=== PATIENT | male | born 1980 | race Caucasian/White ===

== ENCOUNTER 2017-12-14 11:41 | Inpatient (IN) | payer OTHER ==
--- NOTE | 2017-12-14 11:53 | CPEKG ---
Heart Rate: 96 RR Interval: 625 P-R Interval: 152 QRSD Interval: 78 QT Interval: 316 QTC Interval: 400 P Casanova: 43 QRS Casanova: 34 T Wave Casanova: -23 EKG Severity - BORDERLINE ECG - EKG Impression: SINUS RHYTHM EKG Impression: PROBABLE LEFT ATRIAL ABNORMALITY EKG Impression: BORDERLINE T ABNORMALITIES, INFERIOR LEADS Electronically Signed By: Laury Amin 14-Dec-2017 15:43:51
--- NOTE | 2017-12-14 13:08 | EDPHY ---
H & P Time Seen by Provider: 12/14/17 12:38 HPI/ROS: CHIEF COMPLAINT: Hemoptysis, right-sided chest pain HISTORY OF PRESENT ILLNESS: 37-year-old male presents with a 3 week history of hemoptysis and right-sided chest pain. Onset of a productive cough 3 weeks ago. The cough has gradually worsened and he is now coughing up yellowish sputum, with blood. Associated with severe right-sided chest pain. The chest pain increases with movement and with deep inspiration. Chest x-ray performed at the [facility] today revealed a a cavitary lesion in the right lung and a right pleural effusion. Negative PPD 2 weeks ago according to the patient. No fever or shortness of breath. REVIEW OF SYSTEMS: Constitutional: No fever, no chills Eyes: No visual changes ENT: No sore throat Respiratory: no shortness of breath Gastrointestinal: No nausea, no vomiting, no abdominal pain Genitourinary: no dysuria Musculoskeletal: No leg pain or swelling Skin: No rash Neurological: No headache, no weakness Psychiatric: No depression Past Medical/Surgical History: Left ACL repair Social History: Incarcerated Smoking Status: Former smoker Physical Exam: General Appearance: Alert, pleasant Eyes: Pupils equal and round, no conjunctival pallor or injection ENT, Mouth: Mucous membranes moist Neck: Normal inspection Respiratory: Decreased breath sounds at the right base Cardiovascular: Regular rate and rhythm Gastrointestinal: Abdomen is soft and nontender Neurological: A&O, nonfocal exam Skin: Warm and dry, no rash Extremities: Nontender, no pedal edema Psychiatric: Mood and affect normal Constitutional: Initial Vital Signs Temperature (C) 36.3 C 12/14/17 11:43 Heart Rate 103 H 12/14/17 11:43 Respiratory Rate 20 12/14/17 11:43 Blood Pressure 125/82 H 12/14/17 11:43 O2 Sat (%) 93 12/14/17 11:43 O2 Delivery Mode Room Air Allergies/Adverse Reactions: No Known Allergies Allergy (Unverified 12/14/17 11:43) Home Medications: Medication Instructions Recorded Amitriptyline HCl [Elavil] 25 mg PO DAILY 12/14/17 Ibuprofen [Motrin (*)] 800 mg PO BID PRN 12/14/17 Medical Decision Making - Diagnostics EKG Interpretation: EKG interpreted by me reveals sinus rhythm, rate 96, nonspecific T-wave changes in the inferolateral leads. Imaging Results: Imaging Impressions Chest CT 12/14/17 13:04 Impression: 1. Large loculated right hydropneumothorax suggesting empyema, with a small probable abscess at the lateral aspect of the right upper lobe discrete from the complex pleural fluid. 2. Slight leftward mediastinal shift. 3. Tiny pericardial effusion. 4. Prominent likely reactive right hilar lymph node. 5. Trace left effusion. 6. Additional findings as above. Findings discussed with Laury Amin on 12/14/2017 at 1412 hours. ED Course/Re-evaluation: This ipt presents with a 3 wk h/o right sided chest pain and hemoptysis. Outpt CXR concerning for abscess. Pt placed in respiratory isolation after CXR reviewed by me. Pt is surprisingly nontoxic appearing and VS unremarkable, except for initial HR 103. IV NS 1 liter given. Meets SIRS criteria, with elevated HR and leukocytosis; lactate is normal, does not meet severe sepsis protocol. 1415--CT scan result discussed with Dr. Jimenes and reveals a right upper lobe abscess and a moderate right-sided pleural effusion, likely empyema. Patient is nontoxic-appearing. Dr. Lilly Ann was consulted for chest tube placement. Dr. Hwang was consulted for admission. Dr. Chamberlain consulted, suggests Invanz 1gm IV and will see pt in ED. Invanz IV ordered after blood cultures. Pt remained stable throughout his ED stay. Differential Diagnosis: Differential diagnosis includes though it is not limited to pneumonia, pneumothorax, pulmonary embolism, aortic dissection, pericarditis, acute coronary syndrome. - Data Points Laboratory Results: Laboratory Results 12/14/17 13:00 12/14/17 13:00 12/14/17 12/14/17 12/14/17 13:00 13:00 13:00 WBC RBC Hgb Hct MCV MCH MCHC RDW Plt Count MPV Neut % (Auto) Lymph % (Auto) [place] % (Auto) Eos % (Auto) Baso % (Auto) Nucleat RBC Rel Count Absolute Neuts (auto) Absolute Lymphs (auto) Absolute Monos (auto) Absolute Eos (auto) Absolute Basos (auto) Absolute Nucleated RBC Immature Gran % Seg Neutrophils % Band Neutrophils % Lymphocytes % Monocytes % Immature Gran # Absolute Seg Neuts Absolute Band Neuts Absolute Lymphocytes Absolute Monocytes RBC/WBC/PLT Morphology Platelet Estimate Smear Review By D-Dimer 1.05 ug/mLFEU H ug/mLFEU (0.00-0.50) Sodium 135 mEq/L mEq/L 135 mEq/L mEq/L (135-145) (135-145) Potassium 4.2 mEq/L mEq/L 4.2 mEq/L mEq/L (3.5-5.2) (3.5-5.2) Chloride 99 mEq/L mEq/L 99 mEq/L mEq/L (97-110) (97-110) Carbon Dioxide 26 mEq/l mEq/l 26 mEq/l mEq/l (22-31) (22-31) Anion Gap 10 mEq/L mEq/L 10 mEq/L mEq/L (8-16) (8-16) BUN 12 mg/dL mg/dL 12 mg/dL mg/dL (7-23) (7-23) Creatinine 0.7 mg/dL mg/dL 0.7 mg/dL mg/dL (0.7-1.3) (0.7-1.3) Estimated GFR > 60 > 60 Glucose 119 mg/dL H mg/dL 119 mg/dL H mg/dL (70-100) (70-100) Calcium 8.4 mg/dL L mg/dL 8.4 mg/dL L mg/dL (8.5-10.4) (8.5-10.4) Total Bilirubin 0.3 mg/dL mg/dL (0.1-1.4) AST 15 IU/L L IU/L (17-59) ALT 31 IU/L IU/L (21-72) Alkaline Phosphatase 77 IU/L IU/L (38-126) Total Protein 5.3 g/dL L g/dL (6.3-8.2) Albumin 2.7 g/dL L g/dL (3.5-5.0) 12/14/17 13:00 WBC 34.40 10^3/uL H 10^3/uL (3.80-9.50) RBC 4.61 10^6/uL 10^6/uL (4.40-6.38) Hgb 13.7 g/dL g/dL (13.7-17.5) Hct 39.5 % L % (40.0-51.0) MCV 85.7 fL fL (81.5-99.8) MCH 29.7 pg pg (27.9-34.1) MCHC 34.7 g/dL g/dL (32.4-36.7) RDW 12.2 % % (11.5-15.2) Plt Count 349 10^3/uL 10^3/uL (150-400) MPV 9.1 fL fL (8.7-11.7) Neut % (Auto) Not Reported Lymph % (Auto) Not Reported [place] % (Auto) Not Reported Eos % (Auto) Not Reported Baso % (Auto) Not Reported Nucleat RBC Rel Count 0.0 % % (0.0-0.2) Absolute Neuts (auto) Not Reported Absolute Lymphs (auto) Not Reported Absolute Monos (auto) Not Reported Absolute Eos (auto) Not Reported Absolute Basos (auto) Not Reported Absolute Nucleated RBC 0.00 10^3/uL 10^3/uL (0-0.01) Immature Gran % Not Reported Seg Neutrophils % 88 % % Band Neutrophils % 5 % % Lymphocytes % 1 % % Monocytes % 6 % % Immature Gran # Not Reported Absolute Seg Neuts 30.27 10^/uL H 10^/uL (1.70-6.50) Absolute Band Neuts 1.72 10^3/uL H 10^3/uL (0.00-0.70) Absolute Lymphocytes 0.34 10^3/uL L 10^3/uL (1.00-3.00) Absolute Monocytes 2.06 10^3/uL H 10^3/uL (0.30-0.80) RBC/WBC/PLT Morphology NORMAL (NORMAL) Platelet Estimate ADEQUATE (ADEQ) Smear Review By Sha MCFARLANE MD D-Dimer Sodium Potassium Chloride Carbon Dioxide Anion Gap BUN Creatinine Estimated GFR Glucose Calcium Total Bilirubin AST ALT Alkaline Phosphatase Total Protein Albumin Medications Given: Discontinued Medications Bupivacaine HCl/Epinephrine Bitart (Bupivacaine/Epi) Confirm Administered Dose 30 ml .ROUTE .STK-MED ONE Stop: 12/14/17 18:24 Last Admin: 12/14/17 20:39 Dose: 30 ml Ertapenem (Invanz) 1 gm IVP EDNOW ONE PRN Reason: Protocol Stop: 12/14/17 14:28 Last Admin: 12/14/17 14:41 Dose: 1 gm Sodium Chloride (Ns) 1,000 mls @ 0 mls/hr IV ONCE ONE; Wide Open PRN Reason: Protocol Stop: 12/14/17 14:32 Last Admin: 12/14/17 14:41 Dose: 1,000 mls Ketorolac Tromethamine (Toradol) 30 mg IVP EDNOW ONE Stop: 12/14/17 14:37 Last Admin: 12/14/17 14:50 Dose: 30 mg Midazolam HCl (Versed) 2 mg IVP ONCALL ONE Stop: 12/14/17 18:28 Last Admin: 12/14/17 19:47 Dose: 2 mg Departure - Departure Disposition: [facility] In[facility] Acute Clinical Impression: Empyema Condition: Serious
[2017-12-14 13:12] LABS: PLATELET COUNT 349 10^3/uL (150-400)
[2017-12-14] MEDS ORDERED: IOPAMIDOL (ISOVUE-300) 100 ML BTL ONE (13:35)
[2017-12-14] MEDS ORDERED: ERTAPENEM 1 GM VIAL IVP ONE (14:27)
[2017-12-14] MEDS ORDERED: NS 1,000 ML IV ONE (14:31)
[2017-12-14] MEDS ORDERED: KETOROLAC 15 MG/1 ML SDV IVP ONE (14:36)
[2017-12-14] MEDS ORDERED: ONDANSETRON 4 MG/2 ML VIAL IVP PRN ×2 (15:30→20:26)
[2017-12-14] MEDS ORDERED: NS 1,000 ML IV SCH (15:30)
[2017-12-14] MEDS ORDERED: ZOLPIDEM TARTRATE 5 MG TAB PO PRN (15:30)
[2017-12-14] MEDS ORDERED: ONDANSETRON DISINTEGRATING 4 MG TAB PO PRN ×2 (15:30→21:20)
--- NOTE | 2017-12-14 15:37 | PDGENHP ---
History and Physical History and Physical: CC: Right-sided chest pain hemoptysis HISTORY: This patient is in assisted for approximately the last 3 weeks and is sent here from assisted today because of worsening right-sided chest pain and hemoptysis. He says he started having a cough and some mild discomfort approximately 2 days before entering assisted so about 3 and half weeks ago. Since then his cough has progressively gotten more persistent, producing initially some dark phlegm a week or 2 ago and now some hemoptysis. He also has gradually increasing right-sided chest pain which has become fairly severe by this point. He has not felt febrile and apparently has not had any fevers at the assisted but have been noted. Evaluation at the assisted did include a PPD which the patient reports was placed on December 07 and read as negative on December 09. He had a chest x-ray apparently done earlier today that raised concern for a lung abscess. The patient does not recall any episodes of nausea vomiting, anything that felt like aspiration, any episodes where he was unconscious other than normal sleep. He has no previous history of lung infections pneumonias or other serious infectious illnesses. He does not use any IV drugs never has and does not have any other HIV risk factors. He is a smoker since age 13 of a pack a day. There is no history of asthma or other respiratory breathing diseases. He did not have a flu vaccine and has never had a pneumonia vaccine. He has not traveled outside the [place] for many years and never to any areas of the world with significant respiratory infectious is illnesses of concern. He is not aware of anyone he has ever been in contact with his had tuberculosis. He has no significant contact with any animals outside of the occasional helpful PET. ROS: He does think he has lost some weight recently. A comprehensive 10 system review revealed no other significant findings PAST MEDICAL HISTORY: Left knee ACL and PCL repair Some substance abuse in the way of marijuana alcohol and occasional cocaine smoked FAMILY MEDICAL HISTORY: No significant medical illnesses he is aware of SOCIAL HISTORY: Currently could in custody of [facility], and has been in the assisted for around 3 weeks. Does drink some alcohol but it is fairly intermittent, and has occasional use of small amount of smoked cocaine, no history of any IV drug use Some marijuana use daily at home Works as a structural lead painter MEDICATIONS: The patients list has been reconciled by our clinical pharmacist in the EMR. I have reviewed the list and ordered appropriate medicines. PHYSICAL EXAMINATION: Vital Signs: All stable without fever Seed Analyst: Sinus rhythm Examination: General: alert, oriented, good mentation, looks moderately uncomfortable He is quite thin but not really cachectic Skin: warm, dry, good color, no rash HEENT: normal Neck: no mass or jvd Resps: relaxed but slightly rapid at this moment Lungs: Diminished sounds with some egophony at the right lung base, no wheeze or rhonchi Heart: regular, no murmur Abdomen: soft, nondistended, nontender, +BS, no mass Upper Extremities: normal Lower Extremities: no edema, warm No Bleeding or bruising Neurologic: normal speech/language, normal pattern chain builder, no focal weakness IV site: looks normal LABORATORY DATA: White blood cell count notably elevated greater than 30,000 Predominance of neutrophils Rest of CBC unremarkable Metabolic panel unremarkable RADIOLOGY STUDIES: Chest X ray was done at the assisted today and reportedly shows a right lung abscess , this film is not available for us to review here CT chest done in the ER today I did review the images. He has a significant right lower lobe pneumonia, significant loculated pleural effusions with air, right lower lobe lung abscess, and a collection of air at the right hemithorax apex not directly connected to the other processes but probably related to his infectious process. I am unable to see any particular masses but this would be very difficult given this set of images. 12 LEAD EKG: I reviewed a 12 lead EKG tracing from the ER, this shows sinus rhythm with some nonspecific T-wave abnormalities otherwise normal ASSESSMENT: # RIGHT LUNG ABSCESS # RIGHT LOWER LOBE PNEUMONIA # EMPYEMA IS SUSPECTED ON THE RIGHT WITH MULTIPLE LOCULATED PLEURAL EFFUSION CAVITIES WITH SIGNIFICANT AIR # MARKET PLEURITIC CHEST PAIN DUE THE ABOVE # ONGOING CHRONIC TOBACCO ABUSE # NO LUNG MASS SEEN BUT UNABLE TO DEFINITIVELY RULE OUT BASED ON CURRENT IMAGES # CURRENTLY UNDER CUSTODY OF [facility] # INTERMITTENT ALCOHOL AND COCAINE ABUSE, DAILY MARIJUANA USE PLANS: -the patient has been placed in negative pressure room on airborne precautions until we can assess for possible AFB -blood cultures have been obtained, sputum cultures and AFB smears are ordered -the patient has been started on Invanz in the emergency room -will need chest tube placement, but question whether he may also need a procedure to directly drain lung abscess, may need some surgery as part of his treatment for the current infection but will review this with Infectious Disease and General surgery -DVT prophylaxis is ordered -inpatient admission to the hospital as he will be here most likely for at least 5 days, more than that is typical for this kind of case -pain management at this point with Toradol and Tylenol I have reviewed the patient's case in detail with Dr. Laury Amin I have reviewed the patient's past medical records as part of this assessment, including laboratory data from the assisted
--- NOTE | 2017-12-14 15:57 | PDGENHP ---
History and Physical History and Physical: CC: Right-sided chest pain hemoptysis HISTORY: This patient is in sn[facility] for approximately the last 3 weeks and is sent here from [facility] today because of worsening right-sided chest pain and hemoptysis. He says he started having a cough and some mild discomfort approximately 2 days before entering snf so about 3 and half weeks ago. Since then his cough has progressively gotten more persistent, producing initially some dark phlegm a week or 2 ago and now some hemoptysis. He also has gradually increasing right-sided chest pain which has become fairly severe by this point. He has not felt febrile and apparently has not had any fevers at the snf but have been noted. Evaluation at the snf did include a PPD which the patient reports was placed on December 07 and read as negative on December 09. He had a chest x-ray apparently done earlier today that raised concern for a lung abscess. The patient does not recall any episodes of nausea vomiting, anything that felt like aspiration, any episodes where he was unconscious other than normal sleep. He has no previous history of lung infections pneumonias or other serious infectious illnesses. He does not use any IV drugs never has and does not have any other HIV risk factors. He is a smoker since age 13 of a pack a day. There is no history of asthma or other respiratory breathing diseases. He did not have a flu vaccine and has never had a pneumonia vaccine. He has not traveled outside the [place] for many years and never to any areas of the world with significant respiratory infectious is illnesses of concern. He is not aware of anyone he has ever been in contact with his had tuberculosis. He has no significant contact with any animals outside of the occasional helpful PET. ROS: He does think he has lost some weight recently. A comprehensive 10 system review revealed no other significant findings PAST MEDICAL HISTORY: Left knee ACL and PCL repair Some substance abuse in the way of marijuana alcohol and occasional cocaine smoked FAMILY MEDICAL HISTORY: No significant medical illnesses he is aware of SOCIAL HISTORY: Currently could in custody of [facility], and has been in the snf for around 3 weeks. Does drink some alcohol but it is fairly intermittent, and has occasional use of small amount of smoked cocaine, no history of any IV drug use Some marijuana use daily at home Works as a structural bumper and painter MEDICATIONS: The patients list has been reconciled by our clinical pharmacist in the EMR. I have reviewed the list and ordered appropriate medicines. PHYSICAL EXAMINATION: Vital Signs: All stable without fever Small Arms Artillery Repairer: Sinus rhythm Examination: General: alert, oriented, good mentation, looks moderately uncomfortable He is quite thin but not really cachectic Skin: warm, dry, good color, no rash HEENT: normal Neck: no mass or jvd Resps: relaxed but slightly rapid at this moment Lungs: Diminished sounds with some egophony at the right lung base, no wheeze or rhonchi Heart: regular, no murmur Abdomen: soft, nondistended, nontender, +BS, no mass Upper Extremities: normal Lower Extremities: no edema, warm No Bleeding or bruising Neurologic: normal speech/language, normal director of services, no focal weakness IV site: looks normal LABORATORY DATA: White blood cell count notably elevated greater than 30,000 Predominance of neutrophils Rest of CBC unremarkable Metabolic panel unremarkable RADIOLOGY STUDIES: Chest X ray was done at the sn[facility] today and reportedly shows a right lung abscess , this film is not available for us to review here CT chest done in the ER today I did review the images. He has a significant right lower lobe pneumonia, significant loculated pleural effusions with air, right lower lobe lung abscess, and a collection of air at the right hemithorax apex not directly connected to the other processes but probably related to his infectious process. I am unable to see any particular masses but this would be very difficult given this set of images. 12 LEAD EKG: I reviewed a 12 lead EKG tracing from the ER, this shows sinus rhythm with some nonspecific T-wave abnormalities otherwise normal ASSESSMENT: # RIGHT LUNG ABSCESS, LUNG CAVITIES, COUGH AND WEIGHT LOSS (SUSPICION FOR Tb WELL OTHER ORGANISMS) # RIGHT LOWER LOBE PNEUMONIA # EMPYEMA IS SUSPECTED ON THE RIGHT WITH MULTIPLE LOCULATED PLEURAL EFFUSION CAVITIES WITH SIGNIFICANT AIR # MARKET PLEURITIC CHEST PAIN DUE THE ABOVE # ONGOING CHRONIC TOBACCO ABUSE # NO LUNG MASS SEEN BUT UNABLE TO DEFINITIVELY RULE OUT BASED ON CURRENT IMAGES # CURRENTLY UNDER CUSTODY OF [facility] # INTERMITTENT ALCOHOL AND COCAINE ABUSE, DAILY MARIJUANA USE PLANS: -the patient has been placed in negative pressure room on airborne precautions until we can assess for possible AFB -blood cultures have been obtained, sputum cultures and AFB smears are ordered -the patient has been started on Invanz in the emergency room -will need chest tube placement, but question whether he may also need a procedure to directly drain lung abscess, may need some surgery as part of his treatment for the current infection but will review this with Infectious Disease and General surgery -DVT prophylaxis is ordered -inpatient admission to the hospital as he will be here most likely for at least 5 days, more than that is typical for this kind of case -pain management at this point with Toradol and Tylenol I have reviewed the patient's case in detail with Dr. Laury Amin I have reviewed the patient's past medical records as part of this assessment, including laboratory data from the snf
--- NOTE | 2017-12-14 17:49 | GCON ---
[f rep st] CONSULTATION INFECTIOUS DISEASE CONSULTATION DATE OF CONSULTATION: 12/14/2017 REFERRING PHYSICIAN: Laury Amin MD REASON FOR CONSULTATION: Right-sided empyema. HISTORY OF PRESENT ILLNESS: Patient is a 37-year-old male who is currently in senior living who I am asked to see in consultation for right-sided empyema. Patient describes first developing respiratory symptom s in early November. He does note that he had a binge drinking episode prior to onset of symptoms bu t does not recall any loss of consciousness. Initial symptoms included dry cough, right-sided pleuri tic chest pain, and mild fatigue. Over the ensuing time frame, he has developed a productive cough w hich he describes as normally being associated with dark colored sputum, which has now evolved to moraima e element of hemoptysis. He describes this as being approximately 50% of the sputum being occupied b y bloody material. He continues to have significant right-sided pleuritic chest pain. He does not d escribe having fever but does describe having chills and night sweats which have been soaking in natu re. He did undergo PPD placement at the senior living, which was read as negative. He does not have any prio r positive PPD skin testing. Chest x-ray done earlier today raise concerns of lung abscess, and he w as therefore sent to [facility] for further evaluation. Patient notes that he has spent approximately 4 of the last 10 years in senior living. He has not had any recent travel. No animal exposures. No prior history of pneumonia. Patient has not had any recent dental work or dental problems. Evaluation at [facility] rev ealed a white blood cell count of 34,000 with left shift. Venous lactate was normal. Further evalua tion with CT scan of the chest reveals a complex loculated hydropneumothorax consistent with empyema and potentially small adjacent lung abscess in the right upper lobe. There is slight leftward medias tinal shift. Patient does complain of increasing dyspnea over the last week with smaller sized breat hs. Patient denies any prior history of injection drug use or HIV risk factors. He [place] before which has been negative. Blood cultures have been obtained. Given the above findin gs, I am now asked to assist in his ongoing management. PAST MEDICAL HISTORY: Alcohol abuse. PAST SURGICAL HISTORY: Left knee ACL repair. MEDICATIONS: Prior to admission, patient was started on Elavil today. ALLERGIES: No known drug allergies. SOCIAL HISTORY: Patient smokes 1 pack per day. Patient has a history of alcohol abuse with multiple DUIs. He notes occasional cocaine use but no history of injection drug use. Patient does use marij uana. FAMILY HISTORY: Unremarkable. REVIEW OF SYSTEMS: Outside that noted in the HPI, the remainder of 10 system review is unremarkable. PHYSICAL EXAMINATION: VITAL SIGNS: Temperature 36.3, heart rate 95, respiratory rate 18, blood pres sure 136/74, oxygen saturation 93% on room air. GENERAL: Patient is a thin male who appears nontoxi c. HEENT: There is no scleral icterus, conjunctival injection, or conjunctival petechiae. Orophary nx shows dentition in fair repair with dry mucous membranes. There is no sinus tenderness. There is no nasal discharge. NECK: Supple without palpable lymphadenopathy or thyromegaly. CHEST: There a re decreased breath sounds throughout the entire posterior right lung field. The respiratory effort is increased. CARDIOVASCULAR: Regular rate and rhythm without murmurs, gallops, or rubs. ABDOMEN: Soft, nontender, nondistended. There is no palpable organomegaly. Bowel sounds are present. MUSCU LOSKELETAL: No cyanosis, clubbing, or edema. SKIN: Warm and dry to touch. There are no stigmata o f endocarditis. Tattoos are present. NEUROLOGIC: Patient is alert and interacts appropriately with examiner. Cranial nerves 2-12 are grossly intact. Sensation is grossly intact. Muscle tone and bu lk are normal. LYMPHATICS: No cervical or supraclavicular nodes. LABORATORY DATA: White blood cell count 34.4, hematocrit 39.5, platelets 349, neutrophils 88%. Seru m creatinine 0.7, AST 15, ALT 31, bilirubin 0.3, alkaline phosphatase 77. Venous lactic acid is 1.6. INR is 1.0. Blood cultures x2 are pending. CT of chest as outlined above which was reviewed and interpreted by me with Radiology today. IMPRESSION: Right-sided empyema with possible adjacent lung abscess: Most likely, this will be due to oropharyngeal alex given history of alcohol use. I think this is less likely to be associated wi th tuberculosis although tuberculosis can at times be associated with empyema formation. Given exten t and complexity of loculated pleural fluid, this will require further drainage likely via video-assi sted thoracoscopic surgical. Surgical consultation has been requested from the emergency department. RECOMMENDATIONS: 1. Ertapenem 1 g IV q.24 hours. 2. Follow up blood cultures as available. 3. Continue airborne isolation pending further assessment of pleural fluid; pleural fluid cultures w ill be obtained for bacteria, AFB, and fungi. If AFB from pleural fluid is negative, then can discon tinue airborne isolation. 4. Check HIV antibody. Thank you for this consultation. We will continue to follow the patient with you. /[id number]/MODL
--- NOTE | 2017-12-14 18:01 | SOAPPROG ---
SOAP Progress Note Assessment/Plan: Assessment: 37-YEAR-OLD MALE WITH LARGE COMPLEX RIGHT EMPYEMA WITH NO HISTORY OF TRAUMA ADMIT FOR VATS DRAINAGE/RISKS AND OPTIONS FULLY DISCUSSED HEENT NONICTERIC CHEST DULLNESS DECREASED BREATH SOUNDS ON THE RIGHT COR REGULAR RHYTHM ABDOMEN SOFT Plan: VATS DRAINAGE RIGHT CHEST TONIGHT 12/14/17 17:59 Objective: Vital Signs Temp Pulse Resp BP Pulse Ox 37.8 C 90 24 H 136/74 H 98 12/14/17 17:30 12/14/17 17:30 12/14/17 17:30 12/14/17 17:30 12/14/17 17:30 12/13/17 12/14/17 12/15/17 05:59 05:59 05:59 Intake Total 1000 Balance 1000 ICD10 Worksheet Patient Problems: Problems Problem Status Onset Empyema lung Acute - ICD10 Problem Qualifiers (1) Empyema lung
[2017-12-14] MEDS ORDERED: BUPIVACAINE/EPI 0.5% 30 ML SDV ONE (18:23)
--- NOTE | 2017-12-14 18:23 | PDANEPAE ---
ANE History of Present Illness right VATS for empyema ANE Past Medical History - Cardiovascular History Hx Hypertension: No Hx Arrhythmias: No Hx Chest Pain: No Hx Coronary Artery / Peripheral Vascular Disease: No Hx CHF / Valvular Disease: No Hx Palpitations: No - Pulmonary History Hx COPD: No Hx Asthma/Reactive Airway Disease: No Hx Recent Upper Respiratory Infection: No Hx Oxygen in Use at Home: No Hx Sleep Apnea: No - Endocrine History Hx Diabetes: No Hypothyroid: No Hyperthyroid: No Obesity: no - Renal History Hx Renal Disorders: No ANE Review of Systems Review of systems is: negative Review of Systems: - Exercise capacity Exercise capacity: >=4 METS ANE Patient History - Allergies Allergies/Adverse Reactions: No Known Allergies Allergy (Unverified 12/14/17 11:43) - Home Medications Home medications: home medication list seen and reviewed Home Medications: Amitriptyline HCl [Elavil] 25 mg PO DAILY 12/14/17 [Last Taken 12/14/17] Ibuprofen [Motrin (*)] 800 mg PO BID PRN 12/14/17 [Last Taken 12/14/17] - NPO status NPO Since - Liquids (Date): 12/14/17 NPO Since - Liquids (Time): 11:00 NPO Since - Solids (Date): 12/14/17 NPO Since - Solids (Time): 10:30 - Anes Hx Anes Hx: no prior problems - Smoking Hx Smoking Status: Former smoker ANE Labs/Vital Signs - Labs Result Diagrams: 12/14/17 13:00 12/14/17 13:00 - Vital Signs Blood Pressure: 127/75 Heart Rate: 98 Respiratory Rate: 18 O2 Sat (%): 95 Height: 190.5 cm Weight: 71.2 kg ANE Physical Exam - Airway Neck exam: FROM Mallampati Score: Class 1 Mouth exam: normal dental/mouth exam - Pulmonary Pulmonary: no respiratory distress - Cardiovascular Cardiovascular: regular rate and rhythym - ASA Status ASA Status: II, E ANE Anesthesia Plan Anesthesia Plan: general endotracheal anesthesia Specialized Airway: double lumen tube, video laryngoscope, fiberoptic intubation
[2017-12-14] MEDS ORDERED: MIDAZOLAM 2 MG/2 ML VIAL IVP ONE (18:27)
[2017-12-14] MEDS ORDERED: fentaNYL 250 MCG/5 ML INJ ONE (18:32)
[2017-12-14] MEDS ORDERED: PROPOFOL 200 MG/20 ML VIAL ONE (18:32)
[2017-12-14] MEDS ORDERED: ONDANSETRON 4 MG/2 ML VIAL ONE (18:33)
[2017-12-14] MEDS ORDERED: ROCURONIUM 100 MG/10 ML VIAL ONE (18:33)
[2017-12-14] MEDS ORDERED: SUGAMMADEX SODIUM 200 MG/2 ML VIAL IVP ONE (18:33)
[2017-12-14] MEDS ORDERED: DEXAMETHASONE 4 MG/ML VIAL ONE (18:33)
[2017-12-14] MEDS ORDERED: LR 1,000 ML IV SCH (19:00)
--- NOTE | 2017-12-14 20:24 | POSTANESTH ---
Post Anesthetic Evaluation Cardiovascular Status: Normal, Stable Respiratory Status: Normal, Stable Level of Consciousness/Mental Status: Can Participate in Eval Pain Control: Adequate, Prn Tx Ordered Nausea/Vomiting Control: Adequate, Prn Tx Ordered Complications Possibly Related to Anesthesia: None Noted
[2017-12-14] MEDS ORDERED: HYDROmorphONE/DILAUDID 1 MG/ML INJ IVP PRN (20:26)
[2017-12-14] MEDS ORDERED: PROMETHAZINE HCL 25 MG/ML INJ IVP PRN (20:26)
[2017-12-14] MEDS ORDERED: fentaNYL 100 MCG/2 ML INJ IVP PRN (20:26)
[2017-12-14] MEDS ORDERED: LABETALOL HCL 5 MG/ML 20 ML MDV IVP PRN (20:26)
[2017-12-14] MEDS ORDERED: LR 500 ML IV PRN (20:26)
[2017-12-14] MEDS ORDERED: OXYCODONE/APAP 5/325 TAB PO PRN (20:26)
[2017-12-14] MEDS ORDERED: ACETAMINOPHEN 500 MG TAB PO PRN (20:26)
[2017-12-14] MEDS ORDERED: NALOXONE HCL 0.4 MG/ML INJ IVP PRN (20:26)
[2017-12-14] MEDS ORDERED: ALBUTEROL 3 ML DEYVIAL IH PRN (20:26)
[2017-12-14] MEDS ORDERED: HYDROmorphONE/DILAUDID 2 MG/ML INJ ONE (20:44)
--- NOTE | 2017-12-14 21:18 | POSTOPPROG ---
Post Op Note Date of Operation: 12/14/17 Surgeon: Codey Ann Anesthesiologist: ISAK Anesthesia: GET(General Endotracheal) Pre-op Diagnosis: RT EMPYEMA Post-op Diagnosis: SAME Indication: PAIN Procedure: VATS RT EMPYEMA DRAINAGE AND LUNG DECORTICATION Findings: EXTENSIVE FIBRINOUS EXUDATE AND FLUID WITHRLL INFECTION Inf/Abcess present in the surg proc area at time of surgery?: Yes Depth: Organ Space EBL: 50-100 Complications: 0 Drains: Constavac Specimen(s): PLEURAL EXUDATE AND FLUID FOR PATH AND CULTURE
[2017-12-14] MEDS: KETOROLAC 15 MG/1 ML SDV IVP SCH (23:20)
[2017-12-15] MEDS: D5W 1/2 NS W/ 20 KCl/L 1,000 ML IV SCH ×2 (00:14→13:36)
[2017-12-15] MEDS: KETOROLAC 15 MG/1 ML SDV IVP SCH ×4 (00:14→17:39)
[2017-12-15] MEDS: OXYCODONE/APAP 5/325 TAB PO PRN ×5 (02:15→17:37)
[2017-12-15 05:43] LABS: PLATELET COUNT 317 10^3/uL (150-400)
[2017-12-15 07:02] LABS: HIV TYPE 1 AND 2 NEGATIVE (NEGATIVE)
--- NOTE | 2017-12-15 07:21 | PDMN ---
Medical Necessity Medical necessity: [id number] thoracotomy with biopsy or misc. procedures by VATS: A-2 days VATS: R empyema drainage and lung decortication
[2017-12-15] MEDS ORDERED: ENOXAPARIN 40 MG/0.4 ML SYR SC SCH (09:00)
[2017-12-15] MEDS ORDERED: ERTAPENEM 1 GM VIAL IV SCH (09:00)
--- NOTE | 2017-12-15 09:04 | PCMIDPN ---
Assessment/Plan: # R sided empyema: gram stain polymicrobial c/w like oral source/aspiration in setting of heavy drinking (last 1 mo ago). S/p VATS and decortication yesterday with extensive fibrinous exudate identified consistent with infection. Marked leukocytosis not unexpected in the setting of empyema. --dc further AFBs and resp isolation, TB unlikely based on current data as above. --certainly some risk for MDROs/ESBL with incarceration, but incarceration relatively short term. Will dc ertapenem and start Unasyn. Could also consider ceftriaxone + flagyl. --HIV negative (but did not discuss w patient because not back at time of visit) --will monitor WBC over time meds ertapenem 1gm IV daily , #2 micro 3/ lung/pleural tissue: 4+ GPC, 3+ GNR, 2+ GPR, 2+ GNCB, Cx pending Subjective: R chest pain improved after VATs! No c/o - no rash, no diarrhea Feeling very hungry (prior had anorexia!) has not seen dentist in many years Objective: Vital Signs Temp Pulse Resp BP Pulse Ox 36.5 C 66 18 101/67 97 12/15/17 07:32 12/15/17 07:32 12/15/17 07:32 12/15/17 07:32 12/15/17 07:32 Microbiology 12/14/17 20:25 Gram Stain - Final Lung - Eswab 12/14/17 23:30 - Final Sputum, Expectorated 12/14/17 20:15 Gram Stain - Final Lung - Tissue 12/14/17 20:25 Mycobacterial Smear (ZOE) - Final Lung - Eswab Mycobacterial Culture - Final 12/14/17 17:12 Respiratory Panel (PCR) - Final Nasal, Sinus - Swab No Organism Detected Laboratory Results 12/15/17 05:01 12/14/17 12/15/17 12/16/17 05:59 05:59 05:59 Intake Total 4000 Output Total 950 Balance 3050 - Physical Exam General Appearance: thin, non-toxic EENT: other (dentition okay), No thrush Respiratory: crackles (R mid lung with decreased bs base; CT R side with serosang fluid ), No accessory muscle use Cardiac/Chest: regular rate, rhythm Extremities: No pedal edema Abdomen: non-tender, soft Skin: No rash Neuro/Psych: alert, normal mood/affect, oriented x 3 - Time Spent With Patient Time Spent with Patient: greater than 35 minutes (reviewed source of infection with patient and nursing staff) Time Spent with Patient: Greater than 35 minutes spent on this patients care, greater than 50% of time spent counseling, educating, and coordinating care regarding the above mentioned plan. ICD10 Worksheet Patient Problems: Problems Problem Status Onset Empyema Acute Empyema lung Acute
[2017-12-15] MEDS: AMITRIPTYLINE HCL 25 MG TAB PO SCH (09:06)
[2017-12-15] MEDS: ENOXAPARIN 40 MG/0.4 ML SYR SC SCH (09:08)
--- NOTE | 2017-12-15 09:39 | HOSPPROG ---
Hospitalist Progress Note Assessment/Plan: 37 yo M w empyema empyema: polymicrobial gm stain s/o aspiration s/p VATS w chest tube on ertapenem ?TB: HIV neg agree that this is not c.w active TB given gm stain pain: toradol proph: lmwh CAP: ertapenem ok to hold atypical coverage given gm stain dispo: inpatient Subjective: case d/w dr cadet Objective: Vital Signs Temp Pulse Resp BP Pulse Ox 36.5 C 66 18 101/67 97 12/15/17 07:32 12/15/17 07:32 12/15/17 07:32 12/15/17 07:32 12/15/17 07:32 Microbiology 12/14/17 20:25 Gram Stain - Final Lung - Eswab 12/14/17 23:30 - Final Sputum, Expectorated 12/14/17 20:15 Gram Stain - Final Lung - Tissue 12/14/17 20:25 Mycobacterial Smear (ZOE) - Final Lung - Eswab Mycobacterial Culture - Final 12/14/17 17:12 Respiratory Panel (PCR) - Final Nasal, Sinus - Swab No Organism Detected Laboratory Results 12/15/17 05:01 12/14/17 12/15/17 12/16/17 05:59 05:59 05:59 Intake Total 4000 Output Total 950 Balance 3050 - Physical Exam Constitutional: no apparent distress, appears nourished Eyes: PERRL, anicteric sclera Ears, Nose, Mouth, Throat: moist mucous membranes, hearing normal Cardiovascular: regular rate and rhythym, no murmur, rub, or gallop Respiratory: other (good air movement. crackles on R throughout) Gastrointestinal: normoactive bowel sounds, soft, non-tender abdomen Genitourinary: no bladder fullness, No coulter in urethra Skin: warm, normal color Musculoskeletal: full muscle strength, no muscle tenderness Neurologic: AAOx3 ICD10 Worksheet Patient Problems: Problems Problem Status Onset Empyema Acute Empyema lung Acute
--- NOTE | 2017-12-15 15:00 | ASMTCMCOM ---
CM Note CM Note Notes: Patient admitted for treatment of his empyema. He is POD #1 VATS and chest tube placement and being treated with IV antibiotics. He is currently under the custody of the [facility] and has a sole filler accompanying him here. [facility]. Case Management will assist with any discharge needs. Date Signed: 12/15/2017 02:59 PM Electronically Signed By:Tamy Prabhakar RN
[2017-12-15] MEDS ORDERED: NICOTINE POLACRILEX 2 MG GUM B PRN (16:19)
[2017-12-15] MEDS: AMPICILLIN/SULBACTAM 3 GM VIAL IV SCH (17:45)
[2017-12-15] MEDS: ACETAMINOPHEN 325 MG TAB PO PRN (20:38)
[2017-12-16] MEDS: KETOROLAC 15 MG/1 ML SDV IVP SCH ×4 (00:10→17:56)
[2017-12-16] MEDS: AMPICILLIN/SULBACTAM 3 GM VIAL IV SCH ×4 (00:12→17:58)
[2017-12-16] MEDS: D5W 1/2 NS W/ 20 KCl/L 1,000 ML IV SCH (03:52)
[2017-12-16] MEDS: OXYCODONE/APAP 5/325 TAB PO PRN ×4 (07:10→16:28)
[2017-12-16] MEDS: ENOXAPARIN 40 MG/0.4 ML SYR SC SCH (07:57)
[2017-12-16] MEDS: AMITRIPTYLINE HCL 25 MG TAB PO SCH (08:10)
[2017-12-16] MEDS ORDERED: PNEUMOCOCCAL 0.5ML VACCINE VIAL IM ONE (09:21)
--- NOTE | 2017-12-16 09:27 | PCMIDPN ---
Assessment/Plan: 1. Right-sided lung abscess/pneumonia/empyema status post VATS with decortication: Continue Unasyn as is for polymicrobial oropharyngeal alex coverage. Hopefully chest tube can be discontinued soon. Appreciate surgical assistance. 2. Miscellaneous: The patient is HIV negative. Given history of intranasal cocaine, will screen for hepatitis C as well. He is also a heavy smoker; he is agreeable to a Pneumovax. Subjective: In good spirits. Very loquacious this morning. No diarrhea. Is not really getting out of bed. Objective: Unasyn 3 g IV q.6 hours day 1 (antibiotics day 3) Afebrile Vital Signs Temp Pulse Resp BP Pulse Ox 36.8 C 73 20 115/80 93 12/16/17 06:53 12/16/17 06:53 12/16/17 06:53 12/16/17 06:53 12/16/17 06:53 Microbiology 12/14/17 20:15 Gram Stain - Final Lung - Tissue 12/14/17 23:30 - Final Sputum, Expectorated 12/14/17 20:25 Gram Stain - Final Lung - Eswab 12/14/17 23:30 Mycobacterial Smear (ZOE) - Final Sputum, Expectorated 12/14/17 20:15 Mycobacterial Smear (ZOE) - Final Lung - Tissue Laboratory Results 12/15/17 05:01 12/15/17 12/16/17 12/17/17 05:59 05:59 05:59 Intake Total 4000 2304 Output Total 950 2105 100 Balance 3050 199 -100 Long microbiology showing a gram-positive organism Gram stain with multiple morphologies - Physical Exam General Appearance: alert, no apparent distress EENT: pharynx normal, No thrush Respiratory: other (Chest tube right chest, diminished breath sounds right lower lung field otherwise clear upper lung dumont no wheeze.) Cardiac/Chest: regular rate, rhythm, No systolic murmur Abdomen: non-tender, soft Skin: other (Old tattoos), No embolic lesions Neuro/Psych: normal mood/affect, oriented x 3 ICD10 Worksheet Patient Problems: Problems Problem Status Onset Empyema Acute Empyema lung Acute
--- NOTE | 2017-12-16 10:05 | HOSPPROG ---
Hospitalist Progress Note Assessment/Plan: 37 yo M w empyema empyema: polymicrobial gm stain s/o aspiration s/p VATS w chest tube on ertapenem ?TB: HIV neg agree that this is not c.w active TB given gm stain pain: toradol proph: lmwh CAP: ertapenem ok to hold atypical coverage given gm stain dispo: inpatient Subjective: cxr unchanged (interp by me). case d/w dr krishnan Objective: Vital Signs Temp Pulse Resp BP Pulse Ox 36.8 C 73 20 115/80 93 12/16/17 06:53 12/16/17 06:53 12/16/17 06:53 12/16/17 06:53 12/16/17 06:53 Microbiology 12/14/17 20:15 Gram Stain - Final Lung - Tissue 12/14/17 23:30 - Final Sputum, Expectorated 12/14/17 20:25 Gram Stain - Final Lung - Eswab 12/14/17 23:30 Mycobacterial Smear (ZOE) - Final Sputum, Expectorated 12/14/17 20:15 Mycobacterial Smear (ZOE) - Final Lung - Tissue Laboratory Results 12/15/17 05:01 12/15/17 12/16/17 12/17/17 05:59 05:59 05:59 Intake Total 4000 2304 Output Total 950 2105 100 Balance 3050 199 -100 - Physical Exam Constitutional: no apparent distress, appears nourished Eyes: PERRL, anicteric sclera Ears, Nose, Mouth, Throat: moist mucous membranes, hearing normal Cardiovascular: regular rate and rhythym, no murmur, rub, or gallop Respiratory: other (rhonchi and crackles on R) Gastrointestinal: normoactive bowel sounds, soft, non-tender abdomen Genitourinary: no bladder fullness Skin: warm, normal color Musculoskeletal: full muscle strength, no muscle tenderness Neurologic: AAOx3, sensation intact bilaterally Psychiatric: interacting appropriately ICD10 Worksheet Patient Problems: Problems Problem Status Onset Empyema Acute Empyema lung Acute
--- NOTE | 2017-12-16 13:47 | SOAPPROG ---
SOAP Progress Note Assessment/Plan: Assessment: 37 y/o male with right empyema s/p VATS for drainage and decortication 12/14 S: Complaining of a little more pain today. Probably because he didn't have any percocet last night. Getting out of bed. O: Alert Afebrile No WOB Chest: rhonchi and crackles on right side, incision cdi Chest xray shows more atelectasis today Plan: Continue to watch. 12/16/17 13:48 Objective: Vital Signs Temp Pulse Resp BP Pulse Ox 36.9 C 75 18 128/75 H 97 12/16/17 10:54 12/16/17 10:54 12/16/17 10:54 12/16/17 10:54 12/16/17 10:54 Microbiology 12/14/17 20:15 Gram Stain - Final Lung - Tissue 12/14/17 20:25 Gram Stain - Final Lung - Eswab 12/14/17 23:30 - Final Sputum, Expectorated 12/14/17 23:30 Mycobacterial Smear (ZOE) - Final Sputum, Expectorated 12/14/17 20:15 Mycobacterial Smear (ZOE) - Final Lung - Tissue Laboratory Results 12/15/17 05:01 12/15/17 12/16/17 12/17/17 05:59 05:59 05:59 Intake Total 4000 2304 Output Total 950 2105 100 Balance 3050 199 -100 ICD10 Worksheet Patient Problems: Problems Problem Status Onset Empyema Acute Empyema lung Acute
[2017-12-17] MEDS: KETOROLAC 15 MG/1 ML SDV IVP SCH ×5 (00:04→23:05)
[2017-12-17] MEDS: AMPICILLIN/SULBACTAM 3 GM VIAL IV SCH ×3 (00:04→23:21)
[2017-12-17] MEDS: OXYCODONE/APAP 5/325 TAB PO PRN ×4 (02:07→23:18)
[2017-12-17 05:02] LABS: PLATELET COUNT 335 10^3/uL (150-400)
[2017-12-17] MEDS: AMITRIPTYLINE HCL 25 MG TAB PO SCH (07:30)
[2017-12-17] MEDS: ENOXAPARIN 40 MG/0.4 ML SYR SC SCH (07:31)
--- NOTE | 2017-12-17 09:31 | PCMIDPN ---
Assessment/Plan: 1. Right-sided lung abscess/pneumonia/empyema status post VATS with decortication: Given 2 cultures with Streptococcus intermedius, will change antibiotics to ceftriaxone 2 g IV daily and metronidazole 500 g IV q.8 hours. Ultimately, metronidazole can be changed to p.o. Have asked microbiology lab to perform susceptibilities on the Streptococcus intermedius. 2. Miscellaneous: The patient is HIV negative. Given history of intranasal cocaine, hepatitis c antibody was ordered and is pending. Received a Pneumovax yesterday again he history of tobacco use order PICC 12/17/17 09:37 Subjective: States he got up walked the halls a couple of times yesterday. Coughing or amount. No diarrhea. Objective: He is in 3 g IV q.6 hours day 2 (antibiotics day 4) T-max 37.3 degrees 90% 4 L Vital Signs Temp Pulse Resp BP Pulse Ox 36.9 C 71 16 122/73 H 97 12/17/17 08:09 12/17/17 08:09 12/17/17 08:09 12/17/17 08:09 12/17/17 08:09 Microbiology 12/14/17 20:15 Gram Stain - Final Lung - Tissue 12/14/17 20:25 Gram Stain - Final Lung - Eswab 12/14/17 23:30 - Final Sputum, Expectorated Sputum Culture - Final 12/14/17 20:15 Mycobacterial Smear (ZOE) - Final Lung - Tissue 12/14/17 20:25 Mycobacterial Smear (ZOE) - Final Lung - Eswab Mycobacterial Culture - Final Laboratory Results 12/17/17 04:11 12/17/17 04:11 12/16/17 12/17/17 12/18/17 05:59 05:59 06:59 Intake Total 2304 1450 Output Total 2105 2280 Balance 199 -830 Pleural fluid with Streptococcus intermedius, no susceptibilities have been performed. - Physical Exam General Appearance: alert, no apparent distress EENT: pharynx normal, No thrush Respiratory: other (Decreased breath sounds right base could chest tube in place ) Cardiac/Chest: regular rate, rhythm Abdomen: non-tender, soft Skin: No rash ICD10 Worksheet Patient Problems: Problems Problem Status Onset Empyema Acute Empyema lung Acute
--- NOTE | 2017-12-17 09:40 | ASMTCMCOM ---
CM Note CM Note Notes: Spoke w/RN, pt not ready for dc yet. Still has CT and IV abx, will return to [facility] when medically stable. DC Plan: [facility] Date Signed: 12/17/2017 09:39 AM Electronically Signed By:Cyndi Claire RN
--- NOTE | 2017-12-17 10:09 | HOSPPROG ---
Hospitalist Progress Note Assessment/Plan: 37 yo M w empyema empyema: polymicrobial gm stain s/o aspiration s/p VATS w chest tube abx changed to ceftriaxone/metronidazole ?TB: HIV neg agree that this is not c.w active TB given gm stain pain: toradol constipations: add bid miralax proph: lmwh CAP: ertapenem ok to hold atypical coverage given gm stain dispo: inpatient Subjective: afebrile. case d/w dr krishnan. chest tube put out 230 cc. cxr w decreased R sided airspace disease (interp by me) Objective: Vital Signs Temp Pulse Resp BP Pulse Ox 36.9 C 71 16 122/73 H 97 12/17/17 08:09 12/17/17 08:09 12/17/17 08:09 12/17/17 08:09 12/17/17 08:09 Microbiology 12/14/17 20:15 Gram Stain - Final Lung - Tissue 12/14/17 20:25 Gram Stain - Final Lung - Eswab 12/14/17 23:30 - Final Sputum, Expectorated Sputum Culture - Final 12/14/17 20:15 Mycobacterial Smear (ZOE) - Final Lung - Tissue 12/14/17 20:25 Mycobacterial Smear (ZOE) - Final Lung - Eswab Mycobacterial Culture - Final Laboratory Results 12/17/17 04:11 12/17/17 04:11 12/16/17 12/17/17 12/18/17 05:59 05:59 06:59 Intake Total 2304 1450 Output Total 2105 2280 Balance 199 -830 - Physical Exam Constitutional: no apparent distress, appears nourished Eyes: PERRL, anicteric sclera Ears, Nose, Mouth, Throat: moist mucous membranes, hearing normal Cardiovascular: regular rate and rhythym, no murmur, rub, or gallop Respiratory: other (no wheeze, good air movement. improved aeration R lung) Gastrointestinal: normoactive bowel sounds, soft, non-tender abdomen Genitourinary: no bladder fullness, No coulter in urethra Skin: warm, normal color Musculoskeletal: full muscle strength, no muscle tenderness Neurologic: AAOx3 ICD10 Worksheet Patient Problems: Problems Problem Status Onset Empyema Acute Empyema lung Acute
[2017-12-17] MEDS: cefTRIAXone 2 GM in STERILE WATER INJ 20 ML IV SCH (10:18)
[2017-12-17] MEDS: POLYETHYLENE GLYCOL 3350 17 GM PKT PO SCH (10:19)
--- NOTE | 2017-12-17 11:39 | SOAPPROG ---
SOAP Progress Note Assessment/Plan: Assessment: 37-YEAR-OLD MALE WITH LARGE COMPLEX RIGHT EMPYEMA WITH NO HISTORY OF TRAUMA ADMIT FOR VATS DRAINAGE/RISKS AND OPTIONS FULLY DISCUSSED HEENT NONICTERIC CHEST DULLNESS DECREASED BREATH SOUNDS ON THE RIGHT COR REGULAR RHYTHM ABDOMEN SOFT Plan: VATS DRAINAGE RIGHT CHEST TONIGHT 12/14/17 17:59 12/17/17 11:36 AFEBRILE/REASONABLY COMFORTABLE/CHEST X-RAY SHOWS SOME ATELECTASIS/NO AIR LEAK ON THE CHEST TUBE AND DECREASING DRAINAGE APPROXIMATELY 200 CC VERY WEAK EFFORT ON INCENTIVE SPIROMETRY AND ENCOURAGED TO WORK ON THAT/HAS BEEN WALKING Objective: Vital Signs Temp Pulse Resp BP Pulse Ox 36.9 C 71 16 122/73 H 97 12/17/17 08:09 12/17/17 08:09 12/17/17 08:09 12/17/17 08:09 12/17/17 08:09 Microbiology 12/14/17 20:15 Gram Stain - Final Lung - Tissue 12/14/17 20:25 Gram Stain - Final Lung - Eswab 12/14/17 23:30 - Final Sputum, Expectorated Sputum Culture - Final 12/14/17 20:15 Mycobacterial Smear (ZOE) - Final Lung - Tissue 12/14/17 20:25 Mycobacterial Smear (ZOE) - Final Lung - Eswab Mycobacterial Culture - Final Laboratory Results 12/17/17 04:11 12/17/17 04:11 12/16/17 12/17/17 12/18/17 05:59 05:59 06:59 Intake Total 2304 1450 Output Total 2102 2280 300 Balance 199 -830 -300 ICD10 Worksheet Patient Problems: Problems Problem Status Onset Empyema Acute Empyema lung Acute - ICD10 Problem Qualifiers (1) Empyema lung
[2017-12-18] MEDS: KETOROLAC 15 MG/1 ML SDV IVP SCH ×3 (06:14→18:08)
[2017-12-18] MEDS: OXYCODONE/APAP 5/325 TAB PO PRN ×4 (06:15→21:23)
[2017-12-18] MEDS: POLYETHYLENE GLYCOL 3350 17 GM PKT PO SCH (09:00)
[2017-12-18] MEDS: cefTRIAXone 2 GM in STERILE WATER INJ 20 ML IV SCH (09:00)
[2017-12-18] MEDS: AMITRIPTYLINE HCL 25 MG TAB PO SCH (09:00)
[2017-12-18] MEDS: ENOXAPARIN 40 MG/0.4 ML SYR SC SCH (09:01)
--- NOTE | 2017-12-18 09:14 | HOSPPROG ---
Hospitalist Progress Note Assessment/Plan: 37 yo M w empyema empyema: polymicrobial gm stain s/o aspiration s/p VATS w chest tube abx changed to ceftriaxone/metronidazole ?TB: HIV neg agree that this is not c.w active TB given gm stain pain: toradol constipations: add bid miralax proph: lmwh CAP: ertapenem ok to hold atypical coverage given gm stain dispo: inpatient Subjective: case d/w dr krishnan. cxr w improved R airspace disease (interp by me) Objective: Vital Signs Temp Pulse Resp BP Pulse Ox 36.9 C 60 16 111/66 99 12/18/17 08:00 12/18/17 08:00 12/18/17 08:00 12/18/17 08:43 12/18/17 08:00 Microbiology 12/14/17 20:25 Gram Stain - Final Lung - Eswab 12/14/17 20:15 Gram Stain - Final Lung - Tissue Laboratory Results 12/17/17 04:11 12/17/17 04:11 12/17/17 12/18/17 12/19/17 04:59 05:59 05:59 Intake Total Output Total Balance ICD10 Worksheet Patient Problems: Problems Problem Status Onset Empyema Acute Empyema lung Acute
--- NOTE | 2017-12-18 12:15 | SOAPPROG ---
SOAP Progress Note Assessment/Plan: Assessment: 37-YEAR-OLD MALE WITH LARGE COMPLEX RIGHT EMPYEMA WITH NO HISTORY OF TRAUMA ADMIT FOR VATS DRAINAGE/RISKS AND OPTIONS FULLY DISCUSSED HEENT NONICTERIC CHEST DULLNESS DECREASED BREATH SOUNDS ON THE RIGHT COR REGULAR RHYTHM ABDOMEN SOFT Plan: VATS DRAINAGE RIGHT CHEST TONIGHT 12/14/17 17:59 12/17/17 11:36 AFEBRILE/REASONABLY COMFORTABLE/CHEST X-RAY SHOWS SOME ATELECTASIS/NO AIR LEAK ON THE CHEST TUBE AND DECREASING DRAINAGE APPROXIMATELY 200 CC VERY WEAK EFFORT ON INCENTIVE SPIROMETRY AND ENCOURAGED TO WORK ON THAT/HAS BEEN WALKING 12/18/17 12:15 AFEBRILE, MORE COMFORTABLE/CHEST X-RAY IMPROVED/DRAINAGE DECREASED/IMPROVED WITH RESPIRATORY TREATMENT HOPEFULLY DC CHEST TUBES TOMORROW Objective: Vital Signs Temp Pulse Resp BP Pulse Ox 36.5 C 68 16 125/74 H 99 12/18/17 11:12 12/18/17 11:12 12/18/17 11:12 12/18/17 11:12 12/18/17 11:12 Microbiology 12/14/17 20:25 Gram Stain - Final Lung - Eswab 12/14/17 20:15 Gram Stain - Final Lung - Tissue Laboratory Results 12/17/17 04:11 12/18/17 09:30 12/17/17 12/18/17 12/19/17 04:59 05:59 05:59 Intake Total Output Total Balance ICD10 Worksheet Patient Problems: Problems Problem Status Onset Empyema Acute Empyema lung Acute - ICD10 Problem Qualifiers (1) Empyema lung
[2017-12-19] MEDS: KETOROLAC 15 MG/1 ML SDV IVP SCH ×3 (01:05→12:32)
[2017-12-19] MEDS: OXYCODONE/APAP 5/325 TAB PO PRN ×5 (02:31→23:34)
[2017-12-19 04:01] LABS: HEPATITIS C ANTIBODY TOTAL NEGATIVE (NEGATIVE)
[2017-12-19] MEDS: cefTRIAXone 2 GM in STERILE WATER INJ 20 ML IV SCH (08:07)
[2017-12-19] MEDS: AMITRIPTYLINE HCL 25 MG TAB PO SCH (08:07)
[2017-12-19] MEDS: POLYETHYLENE GLYCOL 3350 17 GM PKT PO SCH (08:07)
[2017-12-19] MEDS: ENOXAPARIN 40 MG/0.4 ML SYR SC SCH (08:07)
--- NOTE | 2017-12-19 11:06 | SOAPPROG ---
SOAP Progress Note Assessment/Plan: Assessment/Plan: 37 Y M s/p empyema C VATS drainage. Chest out put down. No air leak. CXR improved yesterday. Will d/c chest tubes then repeat CXR later today. S: just incisional pain. no SOB. no fever. +night sweats. O: alert, nad ctab (crackles resolved per Martha, TWISTING DEPARTMENT END FINDER, who also listened to pt today and last week). no air leak rrr wounds well dressed 12/19/17 11:03 Objective: Vital Signs Temp Pulse Resp BP Pulse Ox 36.5 C 66 16 119/69 99 12/19/17 07:55 12/19/17 07:55 12/19/17 07:55 12/19/17 07:55 12/19/17 07:55 Microbiology 12/14/17 20:15 Gram Stain - Final Lung - Tissue Laboratory Results 12/19/17 04:17 12/19/17 04:17 12/18/17 12/19/17 12/20/17 05:59 05:59 05:59 Intake Total 2200 Output Total 1390 Balance 810 ICD10 Worksheet Patient Problems: Problems Problem Status Onset Empyema Acute Empyema lung Acute
--- NOTE | 2017-12-19 15:47 | HOSPPROG ---
Hospitalist Progress Note Assessment/Plan: * Lung abscess/pneumonia/empyema s/p VATS decortication -chest tubes remain - possible DC tomorrow -Strep intermedius - IV ceftriaxone + Flagyl * Tobacco dependence * Leukocytosis - follow * Aspiration due to Etoh abuse -TB ruled out Subjective: No complaints. Objective: Vital Signs Temp Pulse Resp BP Pulse Ox 36.3 C 75 16 117/63 95 12/19/17 15:31 12/19/17 15:31 12/19/17 15:31 12/19/17 15:31 12/19/17 15:31 Microbiology 12/14/17 20:15 Gram Stain - Final Lung - Tissue 12/14/17 20:25 Gram Stain - Final Lung - Eswab Laboratory Results 12/19/17 04:17 12/19/17 04:17 12/18/17 12/19/17 12/20/17 05:59 05:59 05:59 Intake Total 2200 Output Total 1390 Balance 810 CXR viewed, my personal interpretation is - chest tube in place, good lung expansion CT chest - hydropneumothorax, no mass - Physical Exam Constitutional: no apparent distress, appears nourished, not in pain Cardiovascular: regular rate and rhythym, no murmur, rub, or gallop Respiratory: no respiratory distress, no rales or rhonchi, clear to auscultation Gastrointestinal: normoactive bowel sounds, soft, non-tender abdomen, no palpable masses Skin: no rashes or abrasions, no fluctuance, no induration Neurologic: AAOx3, sensation intact bilaterally Psychiatric: interacting appropriately, not anxious, not encephalopathic, thought process linear ICD10 Worksheet Patient Problems: Problems Problem Status Onset Empyema Acute Empyema lung Acute
--- NOTE | 2017-12-19 17:41 | PCMIDPN ---
Assessment/Plan: Assessment/Plan: * Right-sided empyema/possible small abscess status post VATS drainage and decortication: Cultures with growth of Streptococcus intermedius and Gram stain polymicrobial. Consistent with oral alex. Continue ceftriaxone and metronidazole (for anaerobic activity). Will transition metronidazole to p.o. as patient tolerating p. o. intake well. Discussed with patient that this typically requires 4 weeks of IV antibiotic therapy. Follow clinical course and white blood cell count over time which has decreased but not normalized. 12/19/17 17:32 12/19/17 17:44 Subjective: Patient complains of pain in right chest. Some residual cough. Objective: Vital Signs Temp Pulse Resp BP Pulse Ox 36.3 C 75 16 117/63 95 12/19/17 15:31 12/19/17 15:31 12/19/17 15:31 12/19/17 15:31 12/19/17 15:31 Microbiology 12/14/17 20:15 Gram Stain - Final Lung - Tissue 12/14/17 20:25 Gram Stain - Final Lung - Eswab Laboratory Results 12/19/17 04:17 12/19/17 04:17 12/18/17 12/19/17 12/20/17 05:59 05:59 05:59 Intake Total 2200 Output Total 1390 Balance 810 Laboratory Tests 12/17/17 04:11 Hepatitis C Antibody NEGATIVE - Physical Exam General Appearance: alert, no apparent distress EENT: No scleral icterus, No thrush Respiratory: other (Decreased breath sounds right lung field) Cardiac/Chest: regular rate, rhythm, No systolic murmur Abdomen: non-tender, No distended ICD10 Worksheet Patient Problems: Problems Problem Status Onset Empyema Acute Empyema lung Acute
[2017-12-19] MEDS: IBUPROFEN 600 MG TAB PO PRN (18:43)
[2017-12-19] MEDS: metroNIDAZOLE 500 MG TAB PO SCH (21:05)
[2017-12-20] MEDS: metroNIDAZOLE 500 MG TAB PO SCH ×3 (05:03→21:43)
[2017-12-20] MEDS: OXYCODONE/APAP 5/325 TAB PO PRN ×4 (05:39→21:43)
[2017-12-20] MEDS ORDERED: IOPAMIDOL (ISOVUE-300) 100 ML BTL ONE (07:52)
[2017-12-20] MEDS: ENOXAPARIN 40 MG/0.4 ML SYR SC SCH (11:02)
[2017-12-20] MEDS: POLYETHYLENE GLYCOL 3350 17 GM PKT PO SCH (11:03)
[2017-12-20] MEDS: AMITRIPTYLINE HCL 25 MG TAB PO SCH (11:03)
[2017-12-20] MEDS: cefTRIAXone 2 GM in STERILE WATER INJ 20 ML IV SCH (11:03)
--- NOTE | 2017-12-20 11:51 | PCMIDPN ---
Assessment/Plan: Assessment:/Plan: 1. Right Empyema with possible small abscess: - s/p VATS (12/14/17) - Cx with Strep intermedius. ZOE to Ceftraixone = <0.0625. GS with many different bacteria. Suspect polymicrobial process -Currently on Ceftraixone and Flagyl. - f/u Ct chest pending. Having USG now. -will follow -wbc coming down but still elevated. -Creatinine stable. -HIV, HCV negative -Continue with currently therapy Meds ceftraixone 2g daily- 12/17/17 flagyl 500mg q8- Subjective: afebrile. c/o pain where chest tube is. some sob adn pain with deep breathing. denies abd pain or diarrhea. Objective: Vital Signs Temp Pulse Resp BP Pulse Ox 36.6 C 76 16 128/72 H 95 12/20/17 11:29 12/20/17 11:29 12/20/17 11:29 12/20/17 11:29 12/20/17 11:29 Microbiology 12/14/17 20:15 Mycobacterial Smear (ZOE) - Final Lung - Tissue 12/14/17 23:30 Mycobacterial Smear (ZOE) - Final Sputum, Expectorated 12/14/17 20:15 Gram Stain - Final Lung - Tissue 12/14/17 20:25 Gram Stain - Final Lung - Eswab Laboratory Results 12/20/17 04:21 12/20/17 04:21 12/19/17 12/20/17 12/21/17 05:59 05:59 05:59 Intake Total 2200 2700 Output Total 1390 1860 Balance 810 840 - Physical Exam General Appearance: alert, no apparent distress Respiratory: coarse breath sounds Cardiac/Chest: regular rate, rhythm, other (chest tube) Extremities: No swelling Abdomen: normal bowel sounds, non-tender, soft, No distended Skin: No erythema ICD10 Worksheet Patient Problems: Problems Problem Status Onset Empyema Acute Empyema lung Acute
[2017-12-20] MEDS ORDERED: LIDOCAINE 1% 300 MG/30 ML SDV ONE (12:20)
--- NOTE | 2017-12-20 12:20 | SOAPPROG ---
SOAP Progress Note Assessment/Plan: Assessment/Plan: 37 Y M s/p empyema C VATS drainage. CT today after CXR findings. +residual fluid pocket. D/w rads for US guided drainage. They feel this will not work as the collection appears loculated on US. Will need to discuss with Dr. Ann. S: no complaints. O: alert, nad getting US done in room. sitting up bedside. no wob no air leak 12/20/17 12:19 Objective: Vital Signs Temp Pulse Resp BP Pulse Ox 36.6 C 76 16 128/72 H 95 12/20/17 11:29 12/20/17 11:29 12/20/17 11:29 12/20/17 11:29 12/20/17 11:29 Microbiology 12/14/17 20:15 Mycobacterial Smear (ZOE) - Final Lung - Tissue 12/14/17 23:30 Mycobacterial Smear (ZOE) - Final Sputum, Expectorated 12/14/17 20:15 Gram Stain - Final Lung - Tissue 12/14/17 20:25 Gram Stain - Final Lung - Eswab Laboratory Results 12/20/17 04:21 12/20/17 04:21 12/19/17 12/20/17 12/21/17 05:59 05:59 05:59 Intake Total 2200 2700 Output Total 1390 1860 Balance 810 840 ICD10 Worksheet Patient Problems: Problems Problem Status Onset Empyema Acute Empyema lung Acute
--- NOTE | 2017-12-20 12:47 | HOSPPROG ---
Hospitalist Progress Note Assessment/Plan: Assessment/Plan: 37 y/o male new to my care today with * Lung abscess/pneumonia/empyema s/p VATS decortication -chest tubes remains. CT done today (12/20) prelim read shows residual fluid collection. Await plan per Surgery -Strep intermedius - IV ceftriaxone + Flagyl (needs 4 weeks of IV abx) * Tobacco dependence * Leukocytosis - follow * Aspiration due to Etoh abuse -TB ruled out Subjective: reports pain over chest tube site. Reports sweats, but no fevers. No shortness of breath. Objective: Vital Signs Temp Pulse Resp BP Pulse Ox 36.6 C 76 16 128/72 H 95 12/20/17 11:29 12/20/17 11:29 12/20/17 11:29 12/20/17 11:29 12/20/17 11:29 Microbiology 12/14/17 20:15 Mycobacterial Smear (ZOE) - Final Lung - Tissue 12/14/17 23:30 Mycobacterial Smear (ZOE) - Final Sputum, Expectorated 12/14/17 20:15 Gram Stain - Final Lung - Tissue 12/14/17 20:25 Gram Stain - Final Lung - Eswab Laboratory Results 12/20/17 04:21 12/20/17 04:21 12/19/17 12/20/17 12/21/17 05:59 05:59 05:59 Intake Total 2200 2700 Output Total 1390 1860 Balance 810 840 - Physical Exam Constitutional: no apparent distress, appears nourished, not in pain Cardiovascular: regular rate and rhythym, no murmur, rub, or gallop Respiratory: no respiratory distress, no rales or rhonchi, clear to auscultation , reduced air movement (right lung field) Gastrointestinal: normoactive bowel sounds, soft, non-tender abdomen, no palpable masses Neurologic: AAOx3, sensation intact bilaterally, CN II-XII Intact, No facial droop ICD10 Worksheet Patient Problems: Problems Problem Status Onset Empyema lung Acute Empyema Acute
[2017-12-20] MEDS: IBUPROFEN 600 MG TAB PO PRN ×2 (13:42→21:43)
[2017-12-20 13:52] LABS: INR 1.34 (0.83-1.16); PROTIME(PATIENT) 16.8 SEC (12.0-15.0)
--- NOTE | 2017-12-20 15:09 | ASMTCMCOM ---
CM Note CM Note Notes: CM spoke w/ Dr. Albarran regarding d/c POC. Pt will need 4 weeks of IV ceftriaxone. JESSICA spoke w/ Laurie (P#: [phone]) at [facility]. She recommended that CM makes a referral to [facility] to see if they can deliver the meds and admin the meds. Referral made to [facility]. [facility] has been in contact w/ Laurie at [facility]. [facility] will provide the meds and teach their nurses to admin meds. Dr. Albarran will put in a request for a PICC line. ID will need to submit a transfer of care summary. CM to follow. Plan: [facility] w/ daily ivabx infusions Date Signed: 12/20/2017 03:09 PM Electronically Signed By:JORDAN Walden
[2017-12-20] MEDS ORDERED: ALTEPLASE 2 MG VIAL IVP PRN (15:31)
[2017-12-21 05:50] LABS: PLATELET COUNT 400 10^3/uL (150-400)
[2017-12-21] MEDS: metroNIDAZOLE 500 MG TAB PO SCH ×3 (06:18→21:15)
[2017-12-21] MEDS: IBUPROFEN 600 MG TAB PO PRN ×2 (06:18→18:57)
[2017-12-21] MEDS: OXYCODONE/APAP 5/325 TAB PO PRN ×4 (06:19→23:14)
--- NOTE | 2017-12-21 08:40 | HOSPPROG ---
Hospitalist Progress Note Assessment/Plan: Patient is a 37 y/o male who was in nursing home x 3 weeks who presented to the ER with right sided cp and hemoptysis. patient is new to my care, chart reviewed. * Lung abscess/pneumonia/empyema s/p VATS decortication -chest tubes remains. CT done today (12/20) prelim read shows residual fluid collection. -Radiology to attempt percutaneous drainage today. If unsuccessful, will need repeat VATS. -to get upper GI today to look for a fistula -Strep intermedius - IV ceftriaxone + Flagyl (needs 4 weeks of IV abx) * mild hyperkalemia -will follow -repeat labs in a.m. * Tobacco dependence * Leukocytosis - follow * Aspiration due to Etoh abuse -TB ruled out *Plan: IV fluids while NPO, recheck labs in a.m. Subjective: is having more pain around his right shoulder and r chest wall area. Objective: Vital Signs Temp Pulse Resp BP Pulse Ox 36.4 C 77 18 128/76 H 91 L 12/21/17 07:13 12/21/17 07:13 12/21/17 07:13 12/21/17 07:13 12/21/17 07:13 Microbiology 12/14/17 20:15 Gram Stain - Final Lung - Tissue 12/14/17 20:25 Gram Stain - Final Lung - Eswab 12/14/17 20:15 Mycobacterial Smear (ZOE) - Final Lung - Tissue 12/14/17 23:30 Mycobacterial Smear (ZOE) - Final Sputum, Expectorated Laboratory Results 12/21/17 05:28 12/21/17 05:28 12/20/17 12/21/17 12/22/17 05:59 05:59 05:59 Intake Total 2700 500 Output Total 1860 1000 Balance 840 -500 PT 16.8 SEC (12.0-15.0) H 12/20/17 13:30 INR 1.34 (0.83-1.16) H 12/20/17 13:30 - Physical Exam Constitutional: uncomfortable, other (thin) Eyes: PERRL Ears, Nose, Mouth, Throat: hearing normal Cardiovascular: regular rate and rhythym Respiratory: no respiratory distress, reduced air movement (right middle lobe down, CT without airleak) Gastrointestinal: normoactive bowel sounds Skin: warm Neurologic: AAOx3 Psychiatric: interacting appropriately ICD10 Worksheet Patient Problems: Problems Problem Status Onset Empyema Acute Empyema lung Acute
[2017-12-21] MEDS: cefTRIAXone 2 GM in STERILE WATER INJ 20 ML IV SCH (08:46)
[2017-12-21] MEDS: ACETAMINOPHEN 325 MG TAB PO PRN (08:46)
[2017-12-21] MEDS: AMITRIPTYLINE HCL 25 MG TAB PO SCH (08:46)
[2017-12-21] MEDS: POLYETHYLENE GLYCOL 3350 17 GM PKT PO SCH (08:46)
[2017-12-21] MEDS ORDERED: REGADENOSON 0.4 MG/5 ML SYR IVP ONE (09:11)
[2017-12-21] MEDS ORDERED: LIDOCAINE 1% 300 MG/30 ML SDV ONE (09:14)
[2017-12-21] MEDS ORDERED: NS 1,000 ML IV SCH ×2 (09:15→13:30)
--- NOTE | 2017-12-21 12:04 | PCMIDPN ---
Assessment/Plan: # R sided empyema: gram stain polymicrobial c/w like oral source/aspiration but still number of organisms on gram stain surprising + persistent loculated fluid on recent CT eval, query GI-pulmonary fistula. Significant improvement WBC. AF --continue current abx --further drainage today by IR --Upper GI to look for fistula meds ceftriaxone 2gm IV daily #5 flagyl micro 12/14 lung/pleural tissue: 4+ GPC, 3+ GNR, 2+ GPR, 2+ GNCB, Cx s intermedius Discussed with DR. Ann. Subjective: patient c/o R chest pain Objective: Vital Signs Temp Pulse Resp BP Pulse Ox 36.6 C 66 18 118/74 92 12/21/17 11:24 12/21/17 11:24 12/21/17 11:24 12/21/17 11:24 12/21/17 11:24 Microbiology 12/14/17 20:15 Gram Stain - Final Lung - Tissue 12/14/17 20:25 Gram Stain - Final Lung - Eswab 12/14/17 20:15 Mycobacterial Smear (ZOE) - Final Lung - Tissue 12/14/17 23:30 Mycobacterial Smear (ZEO) - Final Sputum, Expectorated Laboratory Results 12/21/17 05:28 12/21/17 05:28 12/20/17 12/21/17 12/22/17 05:59 05:59 05:59 Intake Total 2700 500 Output Total 1860 1000 Balance 840 -500 - Physical Exam General Appearance: alert, no apparent distress, thin EENT: poor dentition Respiratory: crackles (R base), No accessory muscle use Neck: supple Cardiac/Chest: regular rate, rhythm Extremities: No pedal edema Abdomen: non-tender, soft Pelvic Exam: No coulter Skin: No rash Neuro/Psych: alert, normal mood/affect, oriented x 3 - Time Spent With Patient Time Spent with Patient: greater than 35 minutes Time Spent with Patient: Greater than 35 minutes spent on this patients care, greater than 50% of time spent counseling, educating, and coordinating care regarding the above mentioned plan. ICD10 Worksheet Patient Problems: Problems Problem Status Onset Empyema Acute Empyema lung Acute
--- NOTE | 2017-12-21 12:22 | SOAPPROG ---
[facility] Progress Note Assessment/Plan: Assessment/Plan: 37 Y M s/p empyema C VATS drainage. CT with residual fluid collection. Appears loculated on US. Still, rads to attempt percutaneous drainage today. If unsuccessful then will need repeat VATS. Could set this up for tomorrow if needed. Also, d/w Drs. Resendiz and Seth. Due to culture results and recurrent/residual fluid collection will get UGIS to r/o fistula. S: no complaints. O: alert, nad no air leak +dullness R chest, CTAL rrr abd soft 12/21/17 12:22 Objective: Vital Signs Temp Pulse Resp BP Pulse Ox 36.6 C 66 18 118/74 92 12/21/17 11:24 12/21/17 11:24 12/21/17 11:24 12/21/17 11:24 12/21/17 11:24 Microbiology 12/14/17 20:15 Gram Stain - Final Lung - Tissue 12/14/17 20:25 Gram Stain - Final Lung - Eswab 12/14/17 20:15 Mycobacterial Smear (ZOE) - Final Lung - Tissue 12/14/17 23:30 Mycobacterial Smear (ZOE) - Final Sputum, Expectorated Laboratory Results 12/21/17 05:28 12/21/17 05:28 12/20/17 12/21/17 12/22/17 05:59 05:59 05:59 Intake Total 2700 500 Output Total 1860 1000 Balance 840 -500 PT 16.8 SEC (12.0-15.0) H 12/20/17 13:30 INR 1.34 (0.83-1.16) H 12/20/17 13:30 ICD10 Worksheet Patient Problems: Problems Problem Status Onset Empyema Acute Empyema lung Acute
[2017-12-21] MEDS ORDERED: ALTEPLASE 2 MG VIAL IVP PRN (13:19)
[2017-12-21] MEDS ORDERED: FLUMAZENIL 0.5 MG/5 ML MDV IVP PRN (13:19)
[2017-12-21] MEDS ORDERED: MIDAZOLAM 2 MG/2 ML VIAL IVP PRN (13:19)
[2017-12-21] MEDS ORDERED: PROTAMINE SULFATE 50 MG/5 ML VIAL IVP PRN (13:19)
[2017-12-21] MEDS ORDERED: NALOXONE HCL 0.4 MG/ML INJ IVP PRN (13:19)
[2017-12-21] MEDS ORDERED: MEPERIDINE 25 MG/ML SYR IVP PRN (13:19)
[2017-12-21] MEDS ORDERED: fentaNYL 100 MCG/2 ML INJ IVP PRN (13:19)
[2017-12-21] MEDS ORDERED: HEPARIN 10,000 UNIT/10 ML MDV (1,000 UNIT/ML) IVP PRN (13:19)
[2017-12-21] MEDS ORDERED: GLUCAGON HCL 1 MG VIAL IVP PRN (13:19)
[2017-12-21] MEDS ORDERED: SKIN ADHESIVE (DERMABOND) 1 EACH TP ONE (15:02)
[2017-12-21] MEDS: HYDROmorphONE/DILAUDID 2 MG/ML INJ IVP PRN (16:49)
[2017-12-22 05:07] LABS: PLATELET COUNT 433 10^3/uL (150-400)
[2017-12-22] MEDS: OXYCODONE/APAP 5/325 TAB PO PRN ×4 (05:24→20:04)
[2017-12-22] MEDS: metroNIDAZOLE 500 MG TAB PO SCH ×3 (05:25→21:39)
[2017-12-22] MEDS: IBUPROFEN 600 MG TAB PO PRN (05:25)
[2017-12-22] MEDS: ENOXAPARIN 40 MG/0.4 ML SYR SC SCH (08:44)
[2017-12-22] MEDS: AMITRIPTYLINE HCL 25 MG TAB PO SCH (08:44)
[2017-12-22] MEDS: cefTRIAXone 2 GM in STERILE WATER INJ 20 ML IV SCH (08:49)
[2017-12-22] MEDS: POLYETHYLENE GLYCOL 3350 17 GM PKT PO SCH (08:54)
--- NOTE | 2017-12-22 10:32 | HOSPPROG ---
Hospitalist Progress Note Assessment/Plan: Patient is a 37 y/o male who was in detention x 3 weeks who presented to the ER with right sided cp and hemoptysis. * Lung abscess/pneumonia/empyema s/p VATS decortication -chest tubes remains. -s/p CT guided placement of CT yesterday in radiology -to get upper GI today to look for a fistula -Strep intermedius - IV ceftriaxone + Flagyl (needs 4 weeks of IV abx) * mild hyperkalemia -will follow -repeat labs in a.m. * Tobacco dependence * Leukocytosis - follow * Aspiration due to Etoh abuse -TB ruled out *Plan: Spoke with the family who works with Dr. Ann. Wondering if they can remove the 1st chest tube placed in because he has minimal output. He is feeling better since the 2nd chest tube was placed in. Subjective: Patient is starting to feel better today. Still has some pain when he breathes but overall improving Objective: Vital Signs Temp Pulse Resp BP Pulse Ox 36.6 C 58 L 16 103/64 94 12/22/17 07:10 12/22/17 07:10 12/22/17 07:10 12/22/17 07:10 12/22/17 07:10 Microbiology 12/21/17 15:30 Gram Stain - Final Pleural Fluid - Aspirate 12/14/17 20:15 Gram Stain - Final Lung - Tissue Anaerobic Culture - Final Streptococcus Intermedius 12/14/17 20:25 Gram Stain - Final Lung - Eswab Anaerobic Culture - Final Streptococcus Intermedius Laboratory Results 12/22/17 04:12 12/22/17 04:12 12/21/17 12/22/17 12/23/17 05:59 05:59 05:59 Intake Total 500 1200 Output Total 1000 1363 425 Balance -500 -163 -425 PT 16.8 SEC (12.0-15.0) H 12/20/17 13:30 INR 1.34 (0.83-1.16) H 12/20/17 13:30 - Physical Exam Constitutional: chronically ill appearing, other (thin) Eyes: PERRL Ears, Nose, Mouth, Throat: hearing normal Cardiovascular: regular rate and rhythym Respiratory: no respiratory distress, reduced air movement (Throughout the whole right lower and right mid lung), other (Chest tube without air leak. The 2nd chest tube has serous drainage. The 1st chest tube has almost no drainage at this time) Skin: warm Musculoskeletal: generalized weakness Neurologic: AAOx3 Psychiatric: interacting appropriately ICD10 Worksheet Patient Problems: Problems Problem Status Onset Empyema Acute Empyema lung Acute
--- NOTE | 2017-12-22 11:56 | ASMTCMCOM ---
CM Note CM Note Notes: Spoke w/DIE CUT OPERATOR, pt not ready for dc yet. Just had CT placed yesterday and will get PICC line today. Per Yenny at [facility], pt needs to have PICC line for administration of IV abx in correction. JESSICA left Laurie at [facility] a voicemail update. DC Plan: Long Term + [facility] Date Signed: 12/22/2017 11:56 AM Electronically Signed By:Cyndi Claire RN
--- NOTE | 2017-12-22 17:33 | PCMIDPN ---
Assessment/Plan: Assessment: Right lung empyema. Patient has 2 chest tubes in. The most recent 1 was placed yesterday and is draining significant amount of serous fluid. The initial chest tube has not been draining for a number of days and could possibly be removed. He is currently covered with ceftriaxone and his leukocytosis is slowly resolving. Pansensitive Streptococcus intermedius found on tissue culture. Clinically the patient appears to be improving. Plan: 1. Continue ceftriaxone monotherapy. 2. Examine possibility of removal of initial chest tube. 3. Continue with the 2nd chest tube remaining in place as it is continuing to drain. 4. Probable rescanning of the chest in 2-3 days. Subjective: Patient is doing fairly well. He is resting in his bed laying on his left side. He is breathing easier. He has complaint about irritation with the chest tubes are placed. No significant fevers or chills. Objective: Ceftriaxone # 6 Vital Signs Temp Pulse Resp BP Pulse Ox 36.6 C 81 20 116/63 92 12/22/17 15:21 12/22/17 15:21 12/22/17 15:21 12/22/17 15:21 12/22/17 15:21 Microbiology 12/21/17 15:30 Gram Stain - Final Pleural Fluid - Aspirate 12/14/17 20:15 Gram Stain - Final Lung - Tissue Anaerobic Culture - Final Streptococcus Intermedius 12/14/17 20:25 Gram Stain - Final Lung - Eswab Anaerobic Culture - Final Streptococcus Intermedius Laboratory Results 12/22/17 04:12 12/22/17 04:12 12/21/17 12/22/17 12/23/17 05:59 05:59 05:59 Intake Total 500 1200 550 Output Total 1000 1363 1600 Balance -500 -163 -1050 - Physical Exam General Appearance: WD/WN, alert, no apparent distress, non-toxic Respiratory: No lungs clear, No normal breath sounds, No respiratory distress, No stridor, No coarse breath sounds Cardiac/Chest: regular rate, rhythm, No tachycardia Skin: normal color, warm/dry, No rash Neuro/Psych: alert, normal mood/affect, oriented x 3 ICD10 Worksheet Patient Problems: Problems Problem Status Onset Empyema Acute Empyema lung Acute
[2017-12-22] MEDS ORDERED: ALTEPLASE IV ONE ×2 (18:15→18:30)
[2017-12-22] MEDS ORDERED: [UNRECOGNIZED DRUG - OTHER] IV ONE (18:15)
[2017-12-22] MEDS ORDERED: SODIUM CL 0.9% IV ONE ×2 (18:15→18:30)
--- NOTE | 2017-12-22 20:23 | SOAPPROG ---
SOAP Progress Note Assessment/Plan: Assessment: 37 y/o male with right empyema s/p VATS for drainage and decortication 12/14 Now s/p additional CT guided chest tube placement 12/21 Fistula ruled out on UGIS 12/21 S: no complaints. O: alert, nad no air leak +dullness R chest, CTAL rrr abd soft Plan: Take out initial chest tube. Continue to watch. 12/22/17 20:21 Objective: Vital Signs Temp Pulse Resp BP Pulse Ox 36.9 C 89 19 126/67 H 96 12/22/17 19:46 12/22/17 19:46 12/22/17 19:46 12/22/17 19:46 12/22/17 19:46 Microbiology 12/21/17 15:30 Gram Stain - Final Pleural Fluid - Aspirate Laboratory Results 12/22/17 04:12 12/22/17 04:12 12/21/17 12/22/17 12/23/17 05:59 05:59 05:59 Intake Total 500 1200 550 Output Total 1000 1363 1600 Balance -500 -163 -1050 PT 16.8 SEC (12.0-15.0) H 12/20/17 13:30 INR 1.34 (0.83-1.16) H 12/20/17 13:30 ICD10 Worksheet Patient Problems: Problems Problem Status Onset Empyema Acute Empyema lung Acute
[2017-12-22] MEDS: HYDROmorphONE/DILAUDID 2 MG/ML INJ IVP PRN ×2 (21:48→22:36)
[2017-12-23] MEDS: OXYCODONE/APAP 5/325 TAB PO PRN ×6 (00:14→23:07)
[2017-12-23] MEDS: IBUPROFEN 600 MG TAB PO PRN (02:21)
[2017-12-23] MEDS: metroNIDAZOLE 500 MG TAB PO SCH ×3 (07:15→21:52)
--- NOTE | 2017-12-23 08:40 | PDRADPN ---
Radiology Procedure Note Date of Procedure: 12/23/17 Radiologist: [facility] [place] Anesthesia: Local (Specify) Pre-op Diagnosis: empyema Post-op Diagnosis: same Indication: venous access for abx Procedure: RUE PICC Finding(s): Picc terminates at upper SVC directed downstream Inf/Abcess present in the surg proc area at time of surgery?: No EBL: Minimal Complications: none
[2017-12-23] MEDS: cefTRIAXone 2 GM in STERILE WATER INJ 20 ML IV SCH (09:29)
[2017-12-23] MEDS: AMITRIPTYLINE HCL 25 MG TAB PO SCH (09:31)
[2017-12-23] MEDS: ENOXAPARIN 40 MG/0.4 ML SYR SC SCH (09:31)
[2017-12-23] MEDS: POLYETHYLENE GLYCOL 3350 17 GM PKT PO SCH (09:32)
--- NOTE | 2017-12-23 12:41 | HOSPPROG ---
Hospitalist Progress Note Assessment/Plan: Assessment/Plan: Patient is a 37 y/o male who was in [facility] x 3 weeks who presented to the ER with right sided cp and hemoptysis. * Lung abscess/pneumonia/empyema s/p VATS decortication -chest tubes remain (dc per surgery) -s/p CT guided placement of CT yesterday in radiology -Strep intermedius - IV ceftriaxone + Flagyl (needs 4 weeks of IV abx) Picc line placed 12/23 * mild hyperkalemia -will follow -repeat labs in a.m. * Tobacco dependence * Leukocytosis - follow * Aspiration due to Etoh abuse -TB ruled out *Plan: DC back to [facility] once chest tubes are out to complete antibiotics Subjective: decreased pain today. no fever or chills. overall feeling better Objective: Vital Signs Temp Pulse Resp BP Pulse Ox 36.7 C 86 20 128/77 H 91 L 12/23/17 11:46 12/23/17 11:46 12/23/17 11:46 12/23/17 11:46 12/23/17 11:46 Microbiology 12/21/17 15:30 Gram Stain - Final Pleural Fluid - Aspirate Laboratory Results 12/22/17 04:12 12/23/17 04:31 12/22/17 12/23/17 12/24/17 05:59 05:59 05:59 Intake Total 1200 1300 Output Total 1363 2655 425 Balance -163 -1355 -425 PT 16.8 SEC (12.0-15.0) H 12/20/17 13:30 INR 1.34 (0.83-1.16) H 12/20/17 13:30 - Physical Exam Constitutional: no apparent distress, appears nourished, not in pain Cardiovascular: regular rate and rhythym, no murmur, rub, or gallop Respiratory: no respiratory distress, no rales or rhonchi, clear to auscultation , reduced air movement (right lung field ct remain) Gastrointestinal: normoactive bowel sounds, soft, non-tender abdomen, no palpable masses ICD10 Worksheet Patient Problems: Problems Problem Status Onset Empyema lung Acute Empyema Acute
--- NOTE | 2017-12-23 13:23 | PCMIDPN ---
Assessment/Plan: Assessment/Plan: * Right-sided empyema/possible small abscess status post VATS drainage and decortication and 2nd drainage of residual loculated fluid: Cultures with growth of Streptococcus intermedius and Gram stain polymicrobial. Cultures from 2nd drainage are no growth to date. Continue ceftriaxone and oral metronidazole as likely polymicrobial based on Gram stain. Esophagram showed no evidence of extravasation. Anticipate patient will need 4 weeks of IV antibiotic therapy. Check LFTs on ceftriaxone and metronidazole. 12/23/17 13:19 12/23/17 13:21 Subjective: Patient feels better with easier breathing. Objective: Vital Signs Temp Pulse Resp BP Pulse Ox 36.7 C 86 20 128/77 H 91 L 12/23/17 11:46 12/23/17 11:46 12/23/17 11:46 12/23/17 11:46 12/23/17 11:46 Microbiology 12/21/17 15:30 Gram Stain - Final Pleural Fluid - Aspirate Laboratory Results 12/22/17 04:12 12/23/17 04:31 12/22/17 12/23/17 12/24/17 05:59 05:59 05:59 Intake Total 1200 1300 Output Total 1364 0046 425 Balance -587 -2389 -611 Ceftriaxone # 7, metronidazole #7 Pleural fluid from 12/21/2017 no growth to date with 3+ white blood cells - Physical Exam General Appearance: alert, no apparent distress, thin EENT: No scleral icterus, No conjunctival petechiae Respiratory: other (Decreased breath sounds right base but improved air movement ) Cardiac/Chest: regular rate, rhythm Abdomen: non-tender, No distended ICD10 Worksheet Patient Problems: Problems Problem Status Onset Empyema Acute Empyema lung Acute
--- NOTE | 2017-12-23 20:07 | SOAPPROG ---
SOAP Progress Note Assessment/Plan: Assessment: 37-YEAR-OLD MALE WITH LARGE COMPLEX RIGHT EMPYEMA WITH NO HISTORY OF TRAUMA ADMIT FOR VATS DRAINAGE/RISKS AND OPTIONS FULLY DISCUSSED HEENT NONICTERIC CHEST DULLNESS DECREASED BREATH SOUNDS ON THE RIGHT COR REGULAR RHYTHM ABDOMEN SOFT Plan: VATS DRAINAGE RIGHT CHEST TONIGHT 12/14/17 17:59 12/17/17 11:36 AFEBRILE/REASONABLY COMFORTABLE/CHEST X-RAY SHOWS SOME ATELECTASIS/NO AIR LEAK ON THE CHEST TUBE AND DECREASING DRAINAGE APPROXIMATELY 200 CC VERY WEAK EFFORT ON INCENTIVE SPIROMETRY AND ENCOURAGED TO WORK ON THAT/HAS BEEN WALKING 12/18/17 12:15 AFEBRILE, MORE COMFORTABLE/CHEST X-RAY IMPROVED/DRAINAGE DECREASED/IMPROVED WITH RESPIRATORY TREATMENT HOPEFULLY DC CHEST TUBES TOMORROW 12/23/17 20:06 afebrile/ cxr improved/ chest drainage increased after tpa insertion/ will hold off pulling surgical chest tubes Objective: Vital Signs Temp Pulse Resp BP Pulse Ox 36.4 C 91 28 H 138/72 H 91 L 12/23/17 20:00 12/23/17 20:00 12/23/17 20:00 12/23/17 20:00 12/23/17 15:56 Microbiology 12/21/17 15:30 Gram Stain - Final Pleural Fluid - Aspirate Laboratory Results 12/22/17 04:12 12/23/17 04:31 12/22/17 12/23/17 12/24/17 05:59 05:59 05:59 Intake Total 1200 1300 250 Output Total 1363 8155 425 Balance -163 -1355 -175 PT 16.8 SEC (12.0-15.0) H 12/20/17 13:30 INR 1.34 (0.83-1.16) H 12/20/17 13:30 ICD10 Worksheet Patient Problems: Problems Problem Status Onset Empyema Acute Empyema lung Acute - ICD10 Problem Qualifiers (1) Empyema lung
[2017-12-24] MEDS: OXYCODONE/APAP 5/325 TAB PO PRN (03:08)
[2017-12-24] MEDS: metroNIDAZOLE 500 MG TAB PO SCH ×3 (05:05→21:57)
[2017-12-24] MEDS: ENOXAPARIN 40 MG/0.4 ML SYR SC SCH (09:04)
[2017-12-24] MEDS: IBUPROFEN 600 MG TAB PO PRN ×2 (09:05→15:11)
[2017-12-24] MEDS: AMITRIPTYLINE HCL 25 MG TAB PO SCH (09:05)
[2017-12-24] MEDS: cefTRIAXone 2 GM in STERILE WATER INJ 20 ML IV SCH (09:05)
--- NOTE | 2017-12-24 11:01 | HOSPPROG ---
Hospitalist Progress Note Assessment/Plan: 37 yo M admitted from snf with right lung empyema # right lung empyema: now s/p VATS/decor and subsequent fluid drainage with 2 chest tubes remaining with now limited output. Cultures growing strep intermedius and GS shwoing polymicrobial organisms. Appreciate ID, plan for 4 weeks CTX and oral flagyl. PICC in place. # sepsis, POA: now resolved but initially with leukocytosis, tachycardia, tachypnea in setting of above # leukocytosis: remains elevated but trednding down, related to empyema # hyponatremia: mild, resolved # hypokalemia: repleting as indicated # IP status # patient new to my care. Old records reviewed and summarized as above. Care plan reviewed with CM. Subjective: no significant overnight events, patietn very eager to get CT out, pain not totally controlled with percocet at this time, eating well, having BM Objective: Vital Signs Temp Pulse Resp BP Pulse Ox 36.6 C 81 18 132/77 H 93 12/24/17 07:33 12/24/17 07:33 12/24/17 07:33 12/24/17 07:33 12/24/17 07:33 Microbiology 12/21/17 15:30 Gram Stain - Final Pleural Fluid - Aspirate Body Fluid Culture - Final Laboratory Results 12/22/17 04:12 12/23/17 04:31 12/23/17 12/24/17 12/25/17 05:59 05:59 05:59 Intake Total 1300 1450 Output Total 2655 2155 Balance -1355 -705 PT 16.8 SEC (12.0-15.0) H 12/20/17 13:30 INR 1.34 (0.83-1.16) H 12/20/17 13:30 thin awake alert nad anicteric op clear rrr no mrg cta with dec bs at right base and crackles ct x 2 with serosang output in cannister soft nt nd no cce warm dry well perfused oriented appropriate pleasant - Time Spent With Patient Time Spent with Patient: greater than 35 minutes Time Spent with Patient: Greater than 35 minutes spent on this patients care, greater than 50% of time spent counseling, educating, and coordinating care regarding the above mentioned plan. ICD10 Worksheet Patient Problems: Problems Problem Status Onset Empyema lung Acute Empyema Acute
[2017-12-24] MEDS: oxyCODONE IR 5 MG TAB PO PRN ×3 (11:20→21:57)
--- NOTE | 2017-12-24 13:47 | SOAPPROG ---
SOAP Progress Note Assessment/Plan: Assessment: 37-YEAR-OLD MALE WITH LARGE COMPLEX RIGHT EMPYEMA WITH NO HISTORY OF TRAUMA Pulled surgical chest tubes today - scant drainage CXR in am S: Eager to have tubes pulled o: <10 cc out since yesterday of surgical tubes Removed without difficulty Plan: 12/24/17 13:46 Objective: Vital Signs Temp Pulse Resp BP Pulse Ox 36.7 C 90 18 124/85 H 93 12/24/17 12:00 12/24/17 12:00 12/24/17 12:00 12/24/17 12:00 12/24/17 12:00 Microbiology 12/21/17 15:30 Gram Stain - Final Pleural Fluid - Aspirate Body Fluid Culture - Final Laboratory Results 12/22/17 04:12 12/23/17 04:31 12/23/17 12/24/17 12/25/17 05:59 05:59 05:59 Intake Total 1300 1450 Output Total 2655 2155 Balance -1355 -705 PT 16.8 SEC (12.0-15.0) H 12/20/17 13:30 INR 1.34 (0.83-1.16) H 12/20/17 13:30 ICD10 Worksheet Patient Problems: Problems Problem Status Onset Empyema Acute Empyema lung Acute
[2017-12-24] MEDS: POLYETHYLENE GLYCOL 3350 17 GM PKT PO SCH (14:41)
[2017-12-25] MEDS: IBUPROFEN 600 MG TAB PO PRN ×2 (01:51→17:58)
[2017-12-25] MEDS: metroNIDAZOLE 500 MG TAB PO SCH ×3 (05:09→21:04)
[2017-12-25] MEDS: oxyCODONE IR 5 MG TAB PO PRN ×6 (05:10→22:43)
[2017-12-25 05:29] LABS: PLATELET COUNT 501 10^3/uL (150-400)
[2017-12-25] MEDS: AMITRIPTYLINE HCL 25 MG TAB PO SCH (09:36)
[2017-12-25] MEDS: cefTRIAXone 2 GM in STERILE WATER INJ 20 ML IV SCH (09:37)
[2017-12-25] MEDS: ENOXAPARIN 40 MG/0.4 ML SYR SC SCH (09:37)
--- NOTE | 2017-12-25 10:45 | ASMTCMCOM ---
CM Note CM Note Notes: Plan remains the same; pt will dc back to half-way when medically stable. [facility] to assist with PICC care & IV abx. CM will continue to follow. Dc plan-Alf w/Sushant Date Signed: 12/25/2017 10:44 AM Electronically Signed By:Chitra Lowe RN
[2017-12-25] MEDS: POLYETHYLENE GLYCOL 3350 17 GM PKT PO SCH (11:42)
--- NOTE | 2017-12-25 12:47 | SOAPPROG ---
SOAP Progress Note Assessment/Plan: Assessment: 37-YEAR-OLD MALE WITH LARGE COMPLEX RIGHT EMPYEMA WITH NO HISTORY OF TRAUMA Pulled surgical chest tubes WBC count up - will check again tomorrow CXR stable S: Complaining of pain like he had before o: General: Pleasant, well-nourished and well-groomed man Lungs: Clear to auscultation bilaterally, No increased work of breathing. Posterior chest tube with scant drainage Cardiac: Regular rate, no peripheral edema Skin: Warm and dry. Plan: 12/24/17 13:46 12/25/17 12:44 Objective: Vital Signs Temp Pulse Resp BP Pulse Ox 36.7 C 84 16 127/78 H 92 12/25/17 10:58 12/25/17 10:58 12/25/17 10:58 12/25/17 10:58 12/25/17 10:58 Microbiology 12/21/17 15:30 Gram Stain - Final Pleural Fluid - Aspirate Body Fluid Culture - Final Laboratory Results 12/25/17 05:20 12/25/17 05:20 12/24/17 12/25/17 12/26/17 05:59 05:59 05:59 Intake Total 1450 1000 Output Total 2155 930 Balance -705 70 PT 16.8 SEC (12.0-15.0) H 12/20/17 13:30 INR 1.34 (0.83-1.16) H 12/20/17 13:30 ICD10 Worksheet Patient Problems: Problems Problem Status Onset Empyema Acute Empyema lung Acute
--- NOTE | 2017-12-25 16:47 | PCMIDPN ---
Assessment/Plan: Assessment/Plan: * Right-sided empyema/possible small abscess status post VATS drainage and decortication and 2nd drainage of residual loculated fluid: White blood cell count has increased again today. Patient also notes increased right shoulder pain. Chest x-ray does not show large effusion. Will repeat a CBC in a.m.. If white blood cell count remains elevated, likely will need repeat CT scan of chest to assess for any residual loculated collections. Continue ceftriaxone and metronidazole in interim. * Leukocytosis: See above discussion. No diarrhea to suggest C difficile. 12/25/17 16:44 12/25/17 16:45 Subjective: Patient complains of recurrent right posterior shoulder pain. Chest tube discontinued with IR placed drain remaining. Objective: Vital Signs Temp Pulse Resp BP Pulse Ox 36.8 C 83 14 125/72 H 93 12/25/17 15:41 12/25/17 15:41 12/25/17 15:41 12/25/17 15:41 12/25/17 15:41 Laboratory Results 12/25/17 05:20 12/25/17 05:20 12/24/17 12/25/17 12/26/17 05:59 05:59 05:59 Intake Total 1450 1000 Output Total 2155 930 Balance -705 70 Ceftriaxone # 9 Metronidazole # 9 Pleural fluid 12/21/2017 no growth - Physical Exam General Appearance: alert, no apparent distress, thin EENT: No scleral icterus, No thrush, No conjunctival petechiae Respiratory: other (Decreased breath sounds right base) Cardiac/Chest: regular rate, rhythm, No systolic murmur Abdomen: non-tender, No distended - Line/s RUE PICC Lines: No drainage, No erythema ICD10 Worksheet Patient Problems: Problems Problem Status Onset Empyema Acute Empyema lung Acute
--- NOTE | 2017-12-25 17:25 | SOAPPROG ---
SOAP Progress Note Assessment/Plan: Assessment: Post 16Fr ThalQuick chest drain placement 12/21. About 90cc came out of that in 24hrs. Post TPA infusion of that drain 12/23 evening, yielding about 300cc drainage subsequently. Now decreased output again. CXR with decreased density at RT posteromedial chest, which would be consistent with what's drained out of the area. Surgical drains removed. Plan: Would agree with obtaining CT chest tomorrow if WBC is still high, to evaluate relationship of drain and any other fluid collection that may be present. 12/25/17 17:21 12/25/17 17:25 Objective: Vital Signs Temp Pulse Resp BP Pulse Ox 36.8 C 83 14 125/72 H 93 12/25/17 15:41 12/25/17 15:41 12/25/17 15:41 12/25/17 15:41 12/25/17 15:41 Laboratory Results 12/25/17 05:20 12/25/17 05:20 12/24/17 12/25/17 12/26/17 05:59 05:59 05:59 Intake Total 1450 1000 Output Total 2155 930 Balance -705 70 PT 16.8 SEC (12.0-15.0) H 12/20/17 13:30 INR 1.34 (0.83-1.16) H 12/20/17 13:30 Chest drain output noted. ICD10 Worksheet Patient Problems: Problems Problem Status Onset Empyema Acute Empyema lung Acute
--- NOTE | 2017-12-25 21:20 | HOSPPROG ---
Hospitalist Progress Note Assessment/Plan: 37 yo M admitted from long-term with right lung empyema # right lung empyema: now s/p VATS/decor and subsequent fluid drainage with 1 chest tubes remaining and clamped today. Cultures growing strep intermedius and GS shwoing polymicrobial organisms. Appreciate ID, plan for 4 weeks CTX and oral flagyl. PICC in place. # sepsis, POA: now resolved but initially with leukocytosis, tachycardia, tachypnea in setting of above # leukocytosis: remains elevated but trednding down, related to empyema # hyponatremia: mild, resolved # hypokalemia: repleting as indicated # IP status Subjective: feeling a bit better with one ct out but very eager for other to be removed, no other changes Objective: Vital Signs Temp Pulse Resp BP Pulse Ox 36.8 C 80 16 117/66 92 12/25/17 20:00 12/25/17 20:00 12/25/17 20:00 12/25/17 20:00 12/25/17 20:00 Laboratory Results 12/25/17 05:20 12/25/17 05:20 12/24/17 12/25/17 12/26/17 05:59 05:59 05:59 Intake Total 1450 1000 Output Total 2155 930 Balance -705 70 PT 16.8 SEC (12.0-15.0) H 12/20/17 13:30 INR 1.34 (0.83-1.16) H 12/20/17 13:30 thin awake alert nad anicteric op clear rrr no mrg cta with dec bs at right base and crackles ct x 2 with serosang output in cannister soft nt nd no cce warm dry well perfused oriented appropriate pleasant ICD10 Worksheet Patient Problems: Problems Problem Status Onset Empyema lung Acute Empyema Acute
[2017-12-26] MEDS: oxyCODONE IR 5 MG TAB PO PRN ×4 (02:58→19:40)
[2017-12-26] MEDS: metroNIDAZOLE 500 MG TAB PO SCH ×3 (05:26→21:03)
[2017-12-26 05:44] LABS: PLATELET COUNT 544 10^3/uL (150-400)
[2017-12-26] MEDS: POLYETHYLENE GLYCOL 3350 17 GM PKT PO SCH (08:03)
[2017-12-26] MEDS: ENOXAPARIN 40 MG/0.4 ML SYR SC SCH (08:34)
[2017-12-26] MEDS: AMITRIPTYLINE HCL 25 MG TAB PO SCH (08:34)
[2017-12-26] MEDS: cefTRIAXone 2 GM in STERILE WATER INJ 20 ML IV SCH (08:34)
--- NOTE | 2017-12-26 10:02 | SOAPPROG ---
SOAP Progress Note Assessment/Plan: Assessment: 37 y/o male with right empyema s/p VATS for drainage and decortication 12/14 Now s/p additional CT guided chest tube placement 12/21 Fistula ruled out on UGIS 12/21 S: Improved since yesterday. Sore at chest tube site. O: alert, nad afebrile Chest: CTA bilaterally rrr abd soft WBC down from 24 yesterday to 12 today. Scant chest tube drainage in last 24 hours Plan: Continue ceftriaxone. No need for CT today, given improvement in WBC count. Chest xray tomorrow. 12/26/17 09:59 Objective: Vital Signs Temp Pulse Resp BP Pulse Ox 36.6 C 78 12 125/76 H 94 12/26/17 08:00 12/26/17 08:00 12/26/17 08:00 12/26/17 08:00 12/26/17 08:00 Laboratory Results 12/26/17 05:25 12/25/17 05:20 12/25/17 12/26/17 12/27/17 05:59 05:59 05:59 Intake Total 1000 890 Output Total 930 Balance 70 890 PT 16.8 SEC (12.0-15.0) H 12/20/17 13:30 INR 1.34 (0.83-1.16) H 12/20/17 13:30 ICD10 Worksheet Patient Problems: Problems Problem Status Onset Empyema Acute Empyema lung Acute
[2017-12-26] MEDS: IBUPROFEN 600 MG TAB PO PRN (11:49)
--- NOTE | 2017-12-26 13:40 | PCMIDPN ---
Assessment/Plan: Assessment: Right lung empyema. Patient has 1 remaining chest tube which is decreased in the amount of output. His white blood cell count from yesterday above 20,000 was an outlier as today's white blood cell count is just above 12,000 and more consistent with his long-term downward trend. Patient is continuing on ceftriaxone monotherapy. Plan: 1. Continue ceftriaxone monotherapy. 2. Follow clinical course. Subjective: Patient is resting in his hospital bed. He is much more spirit id and conversant today than last week. He states that he feels better. Breathing well. No diarrhea fevers or chills. Objective: Ceftriaxone # 10 Metronidazole # 10 Vital Signs Temp Pulse Resp BP Pulse Ox 36.6 C 78 12 125/76 H 94 12/26/17 08:00 12/26/17 08:00 12/26/17 08:00 12/26/17 08:00 12/26/17 08:00 Laboratory Results 12/26/17 05:25 12/25/17 05:20 12/25/17 12/26/17 12/27/17 05:59 05:59 05:59 Intake Total 1000 890 Output Total 930 Balance 70 890 - Physical Exam General Appearance: WD/WN, alert, no apparent distress, non-toxic Respiratory: lungs clear, normal breath sounds, No respiratory distress Cardiac/Chest: regular rate, rhythm, No tachycardia Extremities: non-tender, normal inspection Skin: normal color, warm/dry, No rash Neuro/Psych: alert, normal mood/affect, oriented x 3 ICD10 Worksheet Patient Problems: Problems Problem Status Onset Empyema Acute Empyema lung Acute
--- NOTE | 2017-12-26 15:22 | HOSPPROG ---
Hospitalist Progress Note Assessment/Plan: 37 yo M admitted from group home with right lung empyema # right lung empyema: now s/p VATS/decor and subsequent fluid drainage with 1 chest tube remaining and clamped since yesterday, cxr personally reviewed and no change from prior-- likely can dc ct soon. Cultures growing strep intermedius and GS shwoing polymicrobial organisms. Appreciate ID, plan for 4 weeks CTX and oral flagyl. PICC in place. # sepsis, POA: now resolved but initially with leukocytosis, tachycardia, tachypnea in setting of above # leukocytosis: remains elevated but trednding down, related to empyema # hyponatremia: mild, resolved # hypokalemia: repleting as indicated # IP status Subjective: patient feeling a bit better with one chest tube out but still uncomfortable Objective: Vital Signs Temp Pulse Resp BP Pulse Ox 36.6 C 78 12 125/76 H 94 12/26/17 08:00 12/26/17 08:00 12/26/17 08:00 12/26/17 08:00 12/26/17 08:00 Laboratory Results 12/26/17 05:25 12/25/17 05:20 12/25/17 12/26/17 12/27/17 05:59 05:59 05:59 Intake Total 1000 890 Output Total 930 Balance 70 890 PT 16.8 SEC (12.0-15.0) H 12/20/17 13:30 INR 1.34 (0.83-1.16) H 12/20/17 13:30 thin awake alert nad anicteric op clear rrr no mrg cta with dec bs at right base and crackles ct x 1 with serosang output in cannister soft nt nd no cce warm dry well perfused oriented appropriate pleasant ICD10 Worksheet Patient Problems: Problems Problem Status Onset Empyema lung Acute Empyema Acute
[2017-12-27] MEDS: oxyCODONE IR 5 MG TAB PO PRN ×6 (00:32→22:20)
[2017-12-27] MEDS: metroNIDAZOLE 500 MG TAB PO SCH ×3 (04:50→22:20)
[2017-12-27] MEDS: cefTRIAXone 2 GM in STERILE WATER INJ 20 ML IV SCH (08:24)
[2017-12-27] MEDS: POLYETHYLENE GLYCOL 3350 17 GM PKT PO SCH (08:24)
[2017-12-27] MEDS: ENOXAPARIN 40 MG/0.4 ML SYR SC SCH (08:39)
[2017-12-27] MEDS: AMITRIPTYLINE HCL 25 MG TAB PO SCH (08:52)
--- NOTE | 2017-12-27 13:24 | SOAPPROG ---
SOAP Progress Note Assessment/Plan: Assessment/Plan: 37 Y M s/p empyema C VATS drainage. s/p IR CT placement 12/21. Fistula ruled out on 12/21. Surgical chest tube drains removed. Plan to d/c IR placed chest tube tomorrow, 12/28, if continues to be afebrile, WBCs down. S: no complaints. O: alert, nad no air leak ctal, r basilar crackles rrr abd soft 12/27/17 13:23 Objective: Vital Signs Temp Pulse Resp BP Pulse Ox 36.8 C 82 18 129/83 H 94 12/27/17 07:44 12/27/17 07:44 12/27/17 07:44 12/27/17 07:44 12/27/17 07:44 Microbiology 12/14/17 20:15 Mycobacterial Smear (ZOE) - Final Lung - Tissue 12/14/17 23:30 Mycobacterial Smear (ZOE) - Final Sputum, Expectorated Laboratory Results 12/26/17 05:25 12/25/17 05:20 12/26/17 12/27/17 12/28/17 05:59 05:59 05:59 Intake Total 890 800 Balance 890 800 PT 16.8 SEC (12.0-15.0) H 12/20/17 13:30 INR 1.34 (0.83-1.16) H 12/20/17 13:30 ICD10 Worksheet Patient Problems: Problems Problem Status Onset Empyema Acute Empyema lung Acute
--- NOTE | 2017-12-27 13:31 | HOSPPROG ---
Hospitalist Progress Note Assessment/Plan: 37 yo M admitted from half-way with right lung empyema # right lung empyema: now s/p VATS/decor and subsequent fluid drainage with 1 chest tube remaining and clamped since yesterday, cxr personally reviewed and no change from prior-- likely can dc ct soon. Cultures growing strep intermedius and GS shwoing polymicrobial organisms. Appreciate ID, plan for 4 weeks CTX monotherapy. PICC in place. # sepsis, POA: now resolved but initially with leukocytosis, tachycardia, tachypnea in setting of above # leukocytosis: remains elevated but trednding down, related to empyema # hyponatremia: mild, resolved # hypokalemia: repleting as indicated # IP status Subjective: no significant overnight events, patient is feeling a bit better though still eager to have chest tubes removed Objective: Vital Signs Temp Pulse Resp BP Pulse Ox 36.8 C 82 18 129/83 H 94 12/27/17 07:44 12/27/17 07:44 12/27/17 07:44 12/27/17 07:44 12/27/17 07:44 Microbiology 12/14/17 20:15 Mycobacterial Smear (ZOE) - Final Lung - Tissue 12/14/17 23:30 Mycobacterial Smear (ZOE) - Final Sputum, Expectorated Laboratory Results 12/26/17 05:25 12/25/17 05:20 12/26/17 12/27/17 12/28/17 05:59 05:59 05:59 Intake Total 890 800 Balance 890 800 PT 16.8 SEC (12.0-15.0) H 12/20/17 13:30 INR 1.34 (0.83-1.16) H 12/20/17 13:30 thin awake alert nad anicteric op clear rrr no mrg cta with dec bs at right base and crackles ct x 1 with serosang output in cannister soft nt nd no cce warm dry well perfused oriented appropriate pleasant ICD10 Worksheet Patient Problems: Problems Problem Status Onset Empyema Acute Empyema lung Acute
--- NOTE | 2017-12-27 16:01 | PCMIDPN ---
Assessment/Plan: # R sided empyema: gram stain polymicrobial c/w like oral source/aspiration s/ p VATS and repeat IR drainage. Cx from repeat aspiration negative. WBC finally better 12/26. gram stain that does not correspond to cx suggest anaerobes playing significant role in infection. --due to extent pulmonary infection tentatively plan 3 weeks IV, stop date 01/10 ( a little longer, due to timing of f/u ) and re-eval at that time, likely step down to Augmentin --continue ceftriaxone + flagyl --discussed continued dc EtOH use meds ceftriaxone 2gm IV daily #11 flagyl 500mg PO BID #11 micro 12/14 lung/pleural tissue: 4+ GPC, 3+ GNR, 2+ GPR, 2+ GNCB, Cx s intermedius ZOE PCN <0.98211, Ceftriaxone <0.0625 Pleural fluid 12/21/2017 no growth Subjective: generally feeling better Objective: Vital Signs Temp Pulse Resp BP Pulse Ox 36.5 C 90 18 142/81 H 94 12/27/17 15:04 12/27/17 15:04 12/27/17 15:04 12/27/17 15:04 12/27/17 15:04 Microbiology 12/14/17 20:15 Mycobacterial Smear (ZOE) - Final Lung - Tissue 12/14/17 23:30 Mycobacterial Smear (ZOE) - Final Sputum, Expectorated Laboratory Results 12/26/17 05:25 12/25/17 05:20 12/26/17 12/27/17 12/28/17 05:59 05:59 05:59 Intake Total 890 800 Balance 890 800 - Physical Exam General Appearance: alert, no apparent distress, thin, non-toxic EENT: No scleral icterus Respiratory: crackles (occasional R base), No accessory muscle use Neck: supple Cardiac/Chest: regular rate, rhythm Extremities: No pedal edema Skin: other (multiple tattoos), No rash, No embolic lesions Neuro/Psych: alert, normal mood/affect, oriented x 3 - Line/s RUE PICC Lines: No drainage, No erythema - Time Spent With Patient Time Spent with Patient: greater than 25 minutes Time Spent with Patient: Greater than 25 minutes spent on this patients care, greater than 50% of time spent counseling, educating, and coordinating care regarding the above mentioned plan. ICD10 Worksheet Patient Problems: Problems Problem Status Onset Empyema Acute Empyema lung Acute
[2017-12-28] MEDS: oxyCODONE IR 5 MG TAB PO PRN ×2 (02:13→06:30)
[2017-12-28 04:43] LABS: PLATELET COUNT 525 10^3/uL (150-400)
[2017-12-28] MEDS: metroNIDAZOLE 500 MG TAB PO SCH ×3 (06:30→21:34)
[2017-12-28] MEDS: POLYETHYLENE GLYCOL 3350 17 GM PKT PO SCH (07:58)
[2017-12-28] MEDS: cefTRIAXone 2 GM in STERILE WATER INJ 20 ML IV SCH (08:05)
[2017-12-28] MEDS: ENOXAPARIN 40 MG/0.4 ML SYR SC SCH (08:06)
[2017-12-28] MEDS: AMITRIPTYLINE HCL 25 MG TAB PO SCH (08:07)
--- NOTE | 2017-12-28 09:21 | PDIAF ---
- Diagnosis Diagnosis: Streptococcus intermedius and anaerobic lung empyema Code Status: Full Code - Medication Management Discharge Medications: Medications to Continue on Transfer Amitriptyline HCl [Elavil] 25 mg PO DAILY 12/14/17 [Last Taken 12/14/17] Ibuprofen [Motrin (*)] 800 mg PO BID PRN 12/14/17 [Last Taken 12/14/17] Chcf Antibiotics: ceftriaxone 2gm IV daily; flagyl 500mg PO TID [employer] Antibiotic Stop Date: 01/10/18 Discharge Medications: Refer to the Discharge Home Medication list for PRN reason. PICC Care - Routine: Yes - Orders Isolation Type: None - Labs/Radiology CBC w/diff Date: 01/02/18 (weekly tuesday) CMP Date: 01/02/18 (weekly tuesday) Call or Fax Lab and Imaging Results to: Sharon Resendiz MD [facility] at fax [phone] - Follow Up Care Current Providers and Referrals: NONE *PRIMARY CARE P,. [Primary Care Provider] - As per Instructions Sharon Resendiz MD [Medical Doctor] - 01/10/18 10:30 am
--- NOTE | 2017-12-28 10:25 | PCMIDPN ---
Assessment/Plan: # R sided empyema: gram stain polymicrobial c/w like oral source/aspiration s/ p VATS and repeat IR drainage. Cx from repeat aspiration negative. WBC better, CXR today reviewed today and minimal R effusion remains. No GI pulmonary fistula. gram stain that does not correspond to cx suggest anaerobes playing significant role in infection. --due to extent pulmonary infection tentatively plan 3 weeks IV, stop date 01/10 ( a little longer, due to timing of f/u ) and re-eval at that time, likely step down to Augmentin --continue ceftriaxone + flagyl --ID follow up added to discharge paperwork meds ceftriaxone 2gm IV daily #12 flagyl 500mg PO BID #12 micro 12/14 lung/pleural tissue: 4+ GPC, 3+ GNR, 2+ GPR, 2+ GNCB, Cx s intermedius ZOE PCN <0.72232, Ceftriaxone <0.0625 Pleural fluid 12/21/2017 no growth Subjective: feeling well no specific c/o Objective: Vital Signs Temp Pulse Resp BP Pulse Ox 36.4 C 80 18 136/80 H 94 12/28/17 08:00 12/28/17 08:00 12/28/17 08:00 12/28/17 08:00 12/28/17 08:00 Microbiology 12/14/17 20:15 Mycobacterial Smear (ZOE) - Final Lung - Tissue 12/14/17 23:30 Mycobacterial Smear (ZOE) - Final Sputum, Expectorated Laboratory Results 12/28/17 04:30 12/25/17 05:20 12/27/17 12/28/17 12/29/17 05:59 05:59 05:59 Intake Total 800 500 Output Total 0 Balance 800 500 - Physical Exam General Appearance: alert, thin, non-toxic EENT: pale conjunctiva, poor dentition Respiratory: other (decreased bs R base), No accessory muscle use Neck: supple Cardiac/Chest: regular rate, rhythm Extremities: No pedal edema Skin: No rash Neuro/Psych: alert, normal mood/affect, oriented x 3 - Line/s RUE PICC Lines: No drainage, No erythema - Time Spent With Patient Time Spent with Patient: greater than 25 minutes (care coordinated with case management) Time Spent with Patient: Greater than 25 minutes spent on this patients care, greater than 50% of time spent counseling, educating, and coordinating care regarding the above mentioned plan. ICD10 Worksheet Patient Problems: Problems Problem Status Onset Empyema Acute Empyema lung Acute
[2017-12-28] MEDS: IBUPROFEN 600 MG TAB PO PRN (10:31)
--- NOTE | 2017-12-28 10:57 | HOSPPROG ---
Hospitalist Progress Note Assessment/Plan: 37 yo M admitted from retirement with right lung empyema # right lung empyema: now s/p VATS/decor and subsequent fluid drainage with 1 chest tube remaining and clamped since yesterday, cxr personally reviewed and no change from prior-- likely can dc ct soon. Cultures growing strep intermedius and GS showing polymicrobial organisms. Continued on CTX/flagyl for now with ultimate treatment course TBD--initial plan for at least 3 weeks ctx until 01/10 and will w/u with ID at that time. # sepsis, POA: now resolved but initially with leukocytosis, tachycardia, tachypnea in setting of above # leukocytosis: remains elevated but trednding down, related to empyema # hyponatremia: mild, resolved # hypokalemia: repleting as indicated # IP status Dispo: return to retirement when CT out and cleared by surgery, suspect this will be in coming 1-2 days Subjective: no significant overnight events, patient feeling relatively well, pain controlled, eager to get ct out Objective: Vital Signs Temp Pulse Resp BP Pulse Ox 36.4 C 80 18 136/80 H 94 12/28/17 08:00 12/28/17 08:00 12/28/17 08:00 12/28/17 08:00 12/28/17 08:00 Microbiology 12/14/17 20:15 Mycobacterial Smear (ZOE) - Final Lung - Tissue 12/14/17 23:30 Mycobacterial Smear (ZOE) - Final Sputum, Expectorated Laboratory Results 12/28/17 04:30 12/25/17 05:20 12/27/17 12/28/17 12/29/17 05:59 05:59 05:59 Intake Total 800 500 Output Total 0 Balance 800 500 PT 16.8 SEC (12.0-15.0) H 12/20/17 13:30 INR 1.34 (0.83-1.16) H 12/20/17 13:30 thin awake alert nad anicteric op clear rrr no mrg cta with dec bs at right base and crackles ct x 1 with serosang output in cannister soft nt nd no cce warm dry well perfused oriented appropriate pleasant ICD10 Worksheet Patient Problems: Problems Problem Status Onset Empyema Acute Empyema lung Acute
--- NOTE | 2017-12-28 11:34 | SOAPPROG ---
SOAP Progress Note Assessment/Plan: Assessment/Plan: 37 Y M s/p empyema C VATS drainage. s/p IR CT placement 12/21. Fistula ruled out on 12/21. Afebrile. WBCs down, 11K. CT output scant. Surgical chest tube drains removed. D/c IR placed chest tube today. Appreciate ID and medicine input and care. Seen and examined with Dr. Ann. S: no complaints. O: alert, nad no air leak ctab rrr abd soft 12/28/17 11:31 Objective: Vital Signs Temp Pulse Resp BP Pulse Ox 36.4 C 80 18 136/80 H 94 12/28/17 08:00 12/28/17 08:00 12/28/17 08:00 12/28/17 08:00 12/28/17 08:00 Microbiology 12/14/17 20:15 Mycobacterial Smear (ZOE) - Final Lung - Tissue 12/14/17 23:30 Mycobacterial Smear (ZOE) - Final Sputum, Expectorated Laboratory Results 12/28/17 04:30 12/25/17 05:20 12/27/17 12/28/17 12/29/17 05:59 05:59 05:59 Intake Total 800 500 Output Total 0 Balance 800 500 PT 16.8 SEC (12.0-15.0) H 12/20/17 13:30 INR 1.34 (0.83-1.16) H 12/20/17 13:30 ICD10 Worksheet Patient Problems: Problems Problem Status Onset Empyema Acute Empyema lung Acute
--- NOTE | 2017-12-28 12:10 | ASMTCMCOM ---
CM Note CM Note Notes: Spoke w/, pt may dc tomorrow. CM called Laurie at [facility] P: ([phone]) F:([phone]) and faxed updated notes, also informed Yenny at [facility]. DC Plan: [facility] + [facility] Date Signed: 12/28/2017 12:10 PM Electronically Signed By:Cyndi Claire RN
[2017-12-28] MEDS: ACETAMINOPHEN 325 MG TAB PO PRN ×2 (15:22→21:34)
[2017-12-29] MEDS: metroNIDAZOLE 500 MG TAB PO SCH ×2 (05:42→13:16)
[2017-12-29] MEDS: IBUPROFEN 600 MG TAB PO PRN ×2 (05:44→13:25)
[2017-12-29 07:25] VITALS: BP 126/92; PULSE 84; RESP 18; TEMP 97.9; O2SAT 94
[2017-12-29] MEDS: cefTRIAXone 2 GM in STERILE WATER INJ 20 ML IV SCH (08:31)
[2017-12-29] MEDS: AMITRIPTYLINE HCL 25 MG TAB PO SCH (08:32)
[2017-12-29] MEDS: POLYETHYLENE GLYCOL 3350 17 GM PKT PO SCH (08:32)
[2017-12-29] MEDS: ENOXAPARIN 40 MG/0.4 ML SYR SC SCH (08:32)
--- NOTE | 2017-12-29 13:36 | SOAPPROG ---
SOAP Progress Note Assessment/Plan: Assessment: 37 y/o male with right empyema s/p VATS for drainage and decortication 12/14 Now s/p additional CT guided chest tube placement 12/21 Fistula ruled out on UGIS 12/21 S: Doing well, no complaints. O:Alert Afebrile Cardiac: RRR Chest tube site dressings cdi Lungs: CTA bilaterally Plan: Pt can be discharged from our standpoint. Oral abx per ID. Follow up in our office next week. 12/29/17 13:33 Objective: Vital Signs Temp Pulse Resp BP Pulse Ox 36.6 C 84 18 126/92 H 94 12/29/17 07:24 12/29/17 07:24 12/29/17 07:24 12/29/17 07:24 12/29/17 07:24 Laboratory Results 12/28/17 04:30 12/25/17 05:20 12/28/17 12/29/17 12/30/17 05:59 05:59 05:59 Intake Total 500 Output Total 0 Balance 500 PT 16.8 SEC (12.0-15.0) H 12/20/17 13:30 INR 1.34 (0.83-1.16) H 12/20/17 13:30 ICD10 Worksheet Patient Problems: Problems Problem Status Onset Empyema Acute Empyema lung Acute
--- NOTE | 2017-12-29 14:24 | PDIAF ---
- Diagnosis Diagnosis: Streptococcus intermedius and anaerobic lung empyema Code Status: Full Code - Medication Management Discharge Medications: Medications to Continue on Transfer Amitriptyline HCl [Elavil] 25 mg PO DAILY 12/14/17 [Last Taken 12/14/17] Ibuprofen [Motrin (*)] 800 mg PO BID PRN 12/14/17 [Last Taken 12/14/17] Acetaminophen [Tylenol 325mg (*)] 650 mg PO Q4HRS PRN tab 12/29/17 [Last Taken Unknown] Ibuprofen [Motrin (*)] 600 mg PO Q6HRS PRN tab 12/29/17 [Last Taken Unknown] cefTRIAXone [Rocephin] 2 gm IV DAILY vial 12/29/17 [Last Taken Unknown] metroNIDAZOLE [Flagyl 500 mg (*)] 500 mg PO Q8HRS tab 12/29/17 [Last Taken Unknown] Long-Term Antibiotics: ceftriaxone 2gm IV daily; flagyl 500mg PO TID Company Secretary Antibiotic Stop Date: 01/10/18 Discharge Medications: Refer to the Discharge Home Medication list for PRN reason. PICC Care - Routine: Yes - Orders Services needed: Registered Nurse Isolation Type: None Diet Recommendation: no restrictions on diet Diet Texture: Regular Texture Diet - Labs/Radiology CBC w/diff Date: 01/02/18 (weekly tuesday) CMP Date: 01/02/18 (weekly tuesday) Call or Fax Lab and Imaging Results to: Sharon Resendiz MD [facility] at fax [phone] - Follow Up Care Current Providers and Referrals: Codey Ann MD [Medical Doctor] - Sharon Resendiz MD [Medical Doctor] - 01/10/18 10:30 am NONE *PRIMARY CARE P,. [Primary Care Provider] - As per Instructions
--- NOTE | 2017-12-29 15:01 | ASMTLACE ---
LACE Length of stay for Answers: 14 days or more current admission Acuity / Level of Answers: Yes Care: Did the patient have an inpatient admission? # of Emergency department Answers: 1-2 visits in the last 6 months Social determinants Answers: History of substance abuse (ETOH, street drugs, prescription drugs, etc.) Lack of community resources and/or lack of social support (no pcp, lives alone, transportation, kirby d) Score: 18 Date Signed: 12/29/2017 03:01 PM Electronically Signed By:Cyndi Claire RN
--- NOTE | 2017-12-29 16:52 | GDS ---
[f rep st] DISCHARGE SUMMARY DISCHARGE DIAGNOSES: Include: 1. Right lung empyema, status post VATS and decortication. 2. Sepsis secondary to pneumonia and empyema, now resolved. 3. Hypovolemic hyponatremia, resolved. 4. Acute leukocytosis secondary to empyema, improving. HISTORY OF PRESENT ILLNESS: This is a 37-year-old male admitted from correctional care with shortnes s of breath. For details of the patient's initial presentation, please see the history and physical dated 12/14/2017. CONSULTATIVE SERVICES: Include: 1. Infectious Disease. 2. General surgery, Dr. Ann. HOSPITAL COURSE: By issue: 1. Empyema. The patient underwent VATS and decortication. Cultures grew Streptococcus intermedius. The patient has been treated with IV antibiotics in the inpatient setting, in addition to p.o. Flag yl. This will be continued in the outpatient setting under monitoring of infectious disease. The pa chacha will receive his antibiotics [facility]. The chest tube was successful ly removed on 12/28/2017, and the patient is recovering well. He will be followed by Dr. Ann in th e next 5-7 days for a dressing change. 2. Sepsis secondary to pulmonary infection. The patient has resolved his symptoms by the day of dis position. Vital signs are normal, and white count has improved from 34,000 to 11 on the day of dispo sition. MEDICATIONS AT THE TIME OF DISPOSITION: Please reference the med rec printed on 12/29/2017. FOLLOWUP: Appointments include: 1. Infectious Disease, Dr. Resendiz, for ongoing monitoring of his outpatient IV antibiotics. 2. Dr. Ann in 5-7 days for dressing change. PENDING STUDIES: At the time of this dictation include cultures for mycobacterial pathogens, which a re preliminary no growth on the day of disposition. I spent greater than 30 minutes in the planning and coordination of this discharge. /[id number]/MODL
--- NOTE | 2017-12-30 17:51 | ASDISCHSUM ---
Discharge Information Plan Status:IV ABX/Infusion Medically Cleared to Leave: Discharge Date:12/29/2017 03:34 PM CM D/C Disposition:Law Enforcement/Court/Snf ADT D/C Disposition:Home, Routine, Self-Care Projected Discharge Date:12/29/2017 11:00 AM Transportation at D/C:None or Unknown Discharge Delay Reason: Follow-Up Date:12/29/2017 11:00 AM Discharge Slot: Final Diagnosis: Placement Information Referral Type:Home Infusion Referral ID:[id number] Provider Name:[facility] Address 1:[address] Address 2: City:[place] Selection Factors: State:[place] Patient Contact Information Contact Name:AKIL Relationship: Address:[address] City:[place] Alternate Phone: State/Zip Code:[place] [address] Email: Financial Information Financial Class:Commercial Primary Plan Desc:[facility] Primary Plan Number:[id number] Secondary Plan Desc: Secondary Plan Number: Assessment Information [facility] CM Progress Note CM Note CM Note Notes: Patient admitted for treatment of his empyema. He is POD #1 VATS and chest tube placement and being treated with IV antibiotics. He is currently under the custody of the [facility] and has a anthropological linguist accompanying him here. He will discharge back to the longterm when medically stable. Case Management will assist with any discharge needs. Date Signed: 12/15/2017 02:59 PM Electronically Signed By:Tamy Prabhakar RN [facility] CM Progress Note CM Note CM Note Notes: Spoke w/RN, pt not ready for dc yet. Still has CT and IV abx, will return to [facility] when medically stable. DC Plan: [facility] Date Signed: 12/17/2017 09:39 AM Electronically Signed By:Cyndi Claire RN [facility] Progress Note CM Note CM Note Notes: JESSICA spoke w/ Dr. Albarran regarding d/c POC. Pt will need 4 weeks of IV ceftriaxone. JESSICA spoke w/ Laurie (P#: [phone]) at [facility]. She recommended that CM makes a referral to [facility] to see if they can deliver the meds and admin the meds. Referral made to [facility]. [facility] has been in contact w/ Laurie at [facility]. [facility] will provide the meds and teach their nurses to admin meds. Dr. Albarran will put in a request for a PICC line. ID will need to submit a transfer of care summary. CM to follow. Plan: [facility] w/ daily ivabx infusions Date Signed: 12/20/2017 03:09 PM Electronically Signed By:JORDAN Walden LACE LACFreida Length of stay for Answers: 14 days or more current admission Acuity / Level of Answers: Yes Care: Did the patient have an inpatient admission? # of Emergency department Answers: 1-2 visits in the last 6 months Social determinants Answers: History of substance abuse (ETOH, street drugs, prescription drugs, etc.) Lack of community resources and/or lack of social support (no pcp, lives alone, transportation, kirby d) Score: 18 Date Signed: 12/29/2017 03:01 PM Electronically Signed By:Cyndi Claire RN [facility] CM Progress Note CM Note CM Note Notes: Spoke w/PROMOTIONAL DEMONSTRATOR, pt not ready for dc yet. Just had CT placed yesterday and will get PICC line today. Per Yenny at [facility], pt needs to have PICC line for administration of IV abx in longterm. CM left Laurie at [facility] a voicemail update. DC Plan: [facility] + [employer] Date Signed: 12/22/2017 11:56 AM Electronically Signed By:Cyndi Claire RN [facility] CM Progress Note CM Note CM Note Notes: Plan remains the same; pt will dc back to longterm when medically stable. martha to assist with PICC care & IV abx. CM will continue to follow. Dc plan-[facility] w/[facility] Date Signed: 12/25/2017 10:44 AM Electronically Signed By:Chitra Lowe RN [facility] CM Progress Note CM Note CM Note Notes: Spoke Silvia, pt may dc tomorrow. CM called Laurie at [facility] P: ([phone]) F:([phone]) and faxed updated notes, also informed Yenny at [facility]. DC Plan: [facility] + [facility] Date Signed: 12/28/2017 12:10 PM Electronically Signed By:Cyndi Claire RN Case Management Discharge Plan Note Case Management Discharge Discharge Order Complete? Answers: Yes Followup Appointment 01/25/2018 10:30 AM Patient to Obtain Answers: Other Notes: [facility] Medications Transportation Arranged Answers: Other Notes: [facility] Transport will Pick (Date 12/29/2017 12:00 AM & Time) Faxed Final Orders Answers: Yes Discharge Comments Notes: Patrick Vega, final orders faxed, RN to call report. Date Signed: 12/29/2017 02:51 PM Electronically Signed By:Cyndi Claire RN Intervention Information
--- NOTE | 2018-01-01 15:29 | GOP ---
[f rep st] OPERATIVE REPORT DATE OF OPERATION: 12/14/2017 SURGEON: Codey Ann MD COMMUTATOR V RING ASSEMBLER: There was no assistant merchandise manager. ANESTHESIOLOGIST: Kenroy Cano MD PREOPERATIVE DIAGNOSIS: Right chest empyema. POSTOPERATIVE DIAGNOSIS: Right chest empyema with right lower lobe pneumonia. PROCEDURE PERFORMED: FINDINGS: Patient was found to have extensive fibrinous exudate and fluid throughout the right chest with a right lower lobe pneumonia. ESTIMATED BLOOD LOSS: Less than 100 cc DESCRIPTION OF PROCEDURE: Patient was taken to the operating room, where he received satisfactory ge neral endotracheal anesthesia by Dr. Cano with a double-lumen endotracheal tube. He was placed i n the left lateral decubitus position, prepped and draped in usual sterile fashion. A short incision was made, and a trocar was introduced. Pleural space was entered. A large amount of fluid was suct ioned clear. Two other trocars were placed under direct vision, and the lung was mobilized circumfer entially, breaking down all loculations and adhesions. I then proceeded to decorticate the right low er lobe for better expansion. This was tediously accomplished and did require slight enlargement of one of the trocar sites for better removal of fibrinous debris. Wound was copiously irrigated. Two 28 round chest tubes were brought in through some of the trocar sites and secured to the skin with 2- 0 silk sutures. One tube was placed posteriorly and 1 more anteriorly. Wounds were infiltrated with 0.5% Marcaine. Trocar sites were closed with 0 Vicryl for the fascia and skin ryann for the skin. He tolerated the procedure well. COMPLICATIONS: There were no complications. DISPOSITION: He was taken to the recovery room in good condition. /[id number]/MODL
--- NOTE | 2018-01-01 15:34 | GCON ---
[f rep st] CONSULTATION DATE OF CONSULTATION: 12/14/2017 HISTORY OF PRESENT ILLNESS: The patient is a 37-year-old male, who was brought from [facility], who has be en having a febrile illness and chest pain for approximately a week. He presents with right lower lo be infiltrate, pneumonia, and apparent empyema. Attempted drainage has been unsuccessful. CT scan s hows multiple loculated areas of the chest. He has had no history of trauma to the chest, and no pre vious chest surgery. He is admitted at this time for treatment of this pneumonia and empyema. PAST MEDICAL HISTORY: Negative for any major hospitalizations or surgeries. REVIEW OF SYSTEMS: Negative on a full 10-point review of systems. ALLERGIES: None. MEDICATIONS: None. PHYSICAL EXAMINATION: GENERAL: An alert 37-year-old male, who is uncomfortable. HEAD AND NECK: No icterus or adenopathy. CHEST: Dullness in the right base with decreased breath sounds on the right . CARDIAC: Regular rhythm. ABDOMEN: Soft and nontender. EXTREMITIES: Benign full range of motion . Full pulses. NEUROLOGIC: Exam is physiologic. SKIN: No rashes or other lesions. IMPRESSION: Right chest empyema, probably secondary to right lower lobe. PLAN: VATS empyema drainage and decortication. Risks and options have been fully discussed, and he wishes to proceed. /[id number]/MODL
== END 2017-12-29 15:34 | disposition home or self-care (01) | DRG 853 ==
LOC: EEVIPCON 14:23 → F3E 18:17
PROVIDERS: ADMIT Internal Medicine; ATTEND Internal Medicine
PROC: 0W9930Z Drainage of Right Pleural Cavity with Drainage Device, Percutaneous Approach (ICD-10-PCS; principal; 2017-12-14 19:00)
PROC: 0BNF4ZZ Release Right Lower Lung Lobe, Percutaneous Endoscopic Approach (ICD-10-PCS; principal; 2017-12-14 19:00)
PROC: 0W9930Z Drainage of Right Pleural Cavity with Drainage Device, Percutaneous Approach (ICD-10-PCS; 2017-12-21)
PROC: 02HV33Z Insertion of Infusion Device into Superior Vena Cava, Percutaneous Approach (ICD-10-PCS; 2017-12-23)
DX: A40.8 Other streptococcal sepsis (principal); J86.9 Pyothorax without fistula; J18.8 Other pneumonia, unspecified organism; E87.1 Hypo-osmolality and hyponatremia; E86.1 Hypovolemia; F17.200 Nicotine dependence, unspecified, uncomplicated; Z23 Encounter for immunization
CPT/HCPCS: 96374; C1751; G0009; G0472; J0295; J0696; J1100; J1170; J1335; J1650; J1885; J2250; J2310; J2405; J2704; J2785; J2997; J3010; Q9967